=== PATIENT | female | born 1995 | race Caucasian/White ===

== ENCOUNTER 2024-09-08 11:20 | Emergency (ER) | payer OTHER, SELFPAY ==
[2024-09-08 11:20] VITALS: BP 145/88; PULSE 108; PULSE 114; RESP 14; TEMP 36.6; O2SAT 98; BMI 34.5
--- NOTE | 2024-09-08 12:57 | EX.ED.VIS.PS ---
HPI HPI - Psych History of Present Illness Chief Complaint: Depression Detail of Chief Complaint: Depression Informant: patient Onset/Context/Timing Onset: Month(s) Context: Probably worse over the past 1 to 3 months. Conflict: - (None per patient) Timing: Continuous and Waxes and wanes Current Severity: Mild Maximum Severity: Moderate Worsened by: - (Nothing specific) Relieved by: Nothing Associated Symptoms Associated Symptoms - Psych: Positive for Depressed and Easily distracted; Negative for Guilt, Decreased Concentration, Hopelessness, Suicidal Thoughts, Grandiosity, Flight of Ideas, Increased activity, Pressured Speech, Agitated, Angry, Hostile, Threatening, Confusion, Paranoia, Visual Hallucinations or Auditory Hallucinations Specific plan (suicidal thought): Not applicable Narrative Narrative: Patient is a 29-year-old female with history of depression who has been seen at the crisis center. She does not recall the name of the triage licensed practical nurse she saw. She is presently on no medication and would prefer not to be on any medication. She feels that it is a mistake that she came here. She apparently told her doctor that she has been depressed and was told to come to the emergency room for psychiatric evaluation. There is a family history depression mother and maternal grandmother. Patient is never attempted to harm herself. Patient is guarded. I believe she is guarded because she is concerned she will be hospitalized. She expressed that she does not want to be hospitalized. She was informed in my opinion she does not need to be hospitalized based on what she told me. Patient denies any constitutional, HEENT, cardiovascular, or GI symptoms. Patient denies any urologic or neurologic symptoms. Prior similar symptoms: Yes Recent Illness/Hospitalization: No PFSH PFSH Medical History Depression Anxiety Allergy/AdvReac Type Severity Reaction Status Date / Time No Known Allergies Allergy Verified 09/08/24 11:21 Surgical History no surgical history no surgical history Social History (Updated 09/08/24 @ 12:[address] Cruzito Hernandez MD) household members: family Smoking Status: Unknown if ever smoked substance use type: does not use ROS ROS ED Constitutional Constitutional ED: Denies chills, fever(s), subjective, sweats or weight loss Eyes Eyes: Denies blurry vision or change in vision ENT ENT ED: Denies rhinorrhea or sore throat Cardiovascular Cardiovascular: Denies chest pain or palpitations Respiratory/Chest Respiratory/Chest: Denies cough, dyspnea or dyspnea on exertion Gastrointestinal Gastrointestinal: Denies abdominal pain, constipation, diarrhea, nausea or vomiting Genitourinary Genitourinary ED: Denies dysuria, hematuria or urinary frequency Musculoskeletal Musculoskeletal: Denies arthralgias or myalgias Integumentary Denies rash Neurologic Neurologic: Denies headache(s) or paresthesias Psychiatric Psychiatric: Reports depression; Denies suicidal ideation or suicidal thoughts Hematologic/Lymphatic Hematologic/Lymphatic: Denies easy bleeding or easy bruising EXAM Physical Exam Const Vital Signs: 09/08/24 11:20 09/08/24 11:20 Temperature 98 F Temperature Source Temporal Pulse Rate 108 H 114 H Respiratory Rate 14 Blood Pressure 145/88 H Blood Pressure Mean 107 Pulse Ox 98 Oxygen Delivery Method Room Air Positive well nourished and well developed Constitutional Narrative: BMI is 34.5. At times patient became tearful. At times she appeared frustrated and question whether she should have come in. When asked why she is frustrated and concerned she voiced that she does not believe she needs to be admitted and is concerned that my recommendation is for her to be hospitalized. General Appearance ED: well developed; Negative for NAD or pallor HEENT Reports moist mucous membranes normocephalic Eyes PERRL and EOMs intact bilaterally Neck no lymphadenopathy, supple and no JVD Resp normal respiratory effort and clear to auscultation bilaterally Cardio S1 normal heart sound, S2 normal heart sound and no murmurs Rate: tachycardic Rhythm: regular rhythm GI non-tender, non-distended and no masses Auscultation: normoactive bowel sounds Palpation: soft Back/Spine no CVA tenderness Extremity normal to inspection General Extremety ED: Negative for edema or tenderness General Extremity: Negative for edema Neuro oriented x3, CN's II-XII intact bilaterally and no sensory deficits noted Juaquin Coma Scale: document GCS findings Spontaneous Obeys Commands Oriented 15 Sensorium / Orientation: alert Psych Appearance: grossly normal Attitude: withdrawn Activity / Motor Behavior: fidgetting and avoids eye contact Speech: slow and delayed Mood & Affect: depressed and flat affect Thought Process: normal thought process Thought Content: normal thought content Attention / Concentration: attention grossly intact and concentration grossly intact Memory / Cognition: memory grossly intact Insight: fair Judgement: fair Skin General Skin Exam: Negative for jaundice or pallor Lesions: no lesions Rashes: no rashes MDM MDM MDM Narrative Medical decision making narrative: Patient is depressed. Patient would benefit from intensive outpatient therapy and medication. Patient declines medication. She wants to try not on medication intervention before starting any medication. Consult was placed to case management. Spoke with Bess and Glenda regarding patient's. They will see her and will discuss appropriate treatment plan. Management Discussion w/another healthcare provider: transmission worker/Case management (Patient was not evaluated by triage licensed practical nurse. Patient has appointment at 2:00 for intense outpatient therapy.) Discharge Plan Triage Chief Complaint: Depression ED Provider: Cruzito Hernandez Dx/Rx/DC Orders Clinical Impression: Depression, Anxiety, Adult BMI 34.0-34.9 kg/sq m, Sinus tachycardia Instructions: ED Depression Primary Care Provider: Finsese Royal Referrals: Finesse Royal MD [Primary Care Provider] - Activity Restrictions/Additional Instructions: Keep your appointment with IOP scheduled for tomorrow Print Language: Irish Disposition Disposition: Home, Self Care
[2024-09-08 13:56] VITALS: BP 118/64; PULSE 91; RESP 16; TEMP 36.6; O2SAT 100
--- NOTE | 2024-09-08 15:06 | CM.ED ---
Reason for consult: Mental Health Informant(s): Patient and patients mother Chief Complaint: ??Patient presents to ER from primary care physician office after expressing an increase in depressive symptoms.?? Patient states that in the last month or two, she feels her symptoms have gotten worse.? She states she has a lack of motivation, has a hard time getting out of bed in the morning. ??Patient states that she has not looked for a job because she feels that she has diagnosis that have not been identified and she feels that she needs to be able to tell an employer why she acts the way she does.? ?States she does shower every other day but then go back to bed.? Patient reports that she has a hard time ?doing anything and cleaning her room?. Patient states that she wakes up during the night frequently and that her appetite is decreased.? ?Patient reports having no friends and feels that her mom and dad do not understand her mental health concerns.? Patient?s mom states that patient has been isolating herself, that she becomes preoccupied and fixates on events going on in the world.? Patient?s mother states it has become difficult to redirect her when she begins talking about events that upset her, stating that patient has a lot of empathy and becomes emotional over perceived injustices.? Marital/Social History: ?Single Living Situation: ?patient is living with her mom, dad and older brother Support/Resources: parents some, and brother History: None Education and Employment History: Patient has a bachelor?s degree in [employer].? Last worked summer for the [email or web address] Treatment/History: Patient stated she has seen Dr. Bartholomew at [facility] and has seen several counselors at [facility]. ??Patients mother state they have seen multiple providers, but that patient hasn?t found the right fit.? Patients mother stated that she starts with a provider and then decides that it is not going to work.?? Patient states she is currently not on any medications but in the past has been prescribed Zoloft, something for insomnia, and something for anxiety but was unable to state medication names.? Patient states she has not been taking any of her medications for about a year.?? Patient states that she has been diagnosed with Depression and Anxiety.? Mother states that when she was a child she was diagnosed with a form of high functioning autism.? Triggers/Stressors to mental health: ?Patient would only state the holidays, no specific reason Coping Skills: ?you tube videos, listening to music, reading History of Abuse (physical/sexual/verbal/emotional): None Substance Abuse Current/Historical: None Risk to Self/Others: ? Suicidal (thought/plan/intent/attempt): Patient denies any current Suicidal ideations or plans to harm self or kill self.? Patient stated the only time she had ever thought about wanting to go to sleep and not wake up was when she was in middle school, but she was unable for certain if she was suicidal or ?if I just wanted to go [place] by myself?.? When asked if patient had ever harmed self, patient stated that she did cut herself in the past but the intent was not to , she was punishing herself for something she did.? No reports of ideation or self-injurious behavior in the last 1-3 months.? Patients mother confirmed that patient has not had suicidal ideations. ? Access to Lethal Means: not assessed ? Homicidal (thought/plan/intent/attempt): none ? History of Violence (self/others/objects): none ?? Appearance/General Behavior: ?Clean/appropriate, calm Mood/Affect: ?depressed, tearful at times, anxious Communication Pattern: responds to questions but had a difficult time being decisive about answers Thought Process: fragmented General Intellectual Functioning:?? average Judgment: fair Insight: fair Summary:? Due to not being SI or HI and patient being interested in additional services, information given to patient regarding [facility] PCP and IOP.? Spoke with Dr. Hernandez who supports plan.?? Painte also given counseling resources and information on [facility].? Plan: ??Appointment made with [facility] for assessment to either PHP or IOP on SaturdaySeptember 09 at 2:00pm.? Confirmed with physician who agrees with plan. Glenda Finney, [employer], DISCOTHEQUE DANCER ?
== END 2024-09-08 13:57 | disposition home or self-care (01) ==
PROVIDERS: Emergency Provider Emergency Medicine; PCP Family Medicine; Visit Provider Emergency Medicine
DX: F32.A Depression, unspecified (principal); F41.9 Anxiety disorder, unspecified; R00.0 Tachycardia, unspecified
CPT/HCPCS: 99282

== ENCOUNTER 2024-09-16 08:00 | Outpatient (RCR) | payer MEDICAID, SELFPAY ==
--- NOTE | 2024-09-16 10:10 | BH.SGPN.GN ---
Behaviors/Verbalizations/Mental Status: [] Eye contact is good. Motor activity is appropriate. Appearance is casual. Speech is Appropriate. Mood is anxious. Affect is congruent. Thoughts are linear and logical. No evidence of psychosis. Client Response/Progress/Benefit: [] Pt participated at times during the interactive group discussions. Along with peers contributed to interactive discussion on defining what a boundary is in mental health. Pt along with peers identified challenges to setting boundaries which included; people pleasing, possible conflict, possible abandonment, fear of rejection, fear of loss, fear people won't respect the boundary, etc. Pt worked well in small group in which they identified different types of boundaries (material, sexual, intellectual, physical, emotional) and provided examples. Pt benefited from increased awareness and insight on the challenges to setting boundaries and the types of boundaries. Will continue in IOP to prevent decompensation, stabilize mood, and improve functioning Narrative Note: []
--- NOTE | 2024-09-16 11:10 | BH.SGPN.GN ---
Behaviors/Verbalizations/Mental Status: []Eye contact is good. Motor activity is appropriate. Appearance is casual. Speech is Appropriate. Mood is depressed and anxious. Affect is congruent. Thoughts are linear and logical. No evidence of psychosis. Client Response/Progress/Benefit: []Pt responded well to session AEB listening attentively to peers and taking notes throughout. Reports connecting with rigid boundaries much of the time and reflected on how this has made her more isolated and increases difficulties in asking for help. Participated in group discussion brainstorming various strategies for improving healthy boundary setting. Seemed to benefit from increased awareness of how different boundary styles can impact mental health. Will continue IOP tx to prevent decompensation, improve daily functioning, and increase mood stability. Narrative Note: []
--- NOTE | 2024-09-16 14:26 | BH.MTP_ITS ---
[facility] Treatment Plan Patient Information Program Physician:: Noemi Ramsay Primary Therapist:: GONZALES Fish Psychiatric Diagnoses Psychiatric Diagnoses:: 1. Major depressive disorder, recurrent, severe without psychosis 2. Anxiety disorder, NOS 3. Autism spectrum disorder Diagnosis Code(s):: F 33.2 Estimated LOS Estimated LOS (in weeks):: 6 Problem/Goal #1 Problem/Goal #1 Stated Goal:: Pt will decrease depressive symptoms, inappropriate guilt, worthlessness, and negative self-talk. Description of Barriers: Pt has a history of isolation, limited supports, avoidance, low motivation, and negative self-talk Functional Impact: The patient is a 29-year-old single female with a history of depression, anxiety and autism spectrum disorder who was referred to the IOP at [facility] after being seen in the [facility] emergency room on September 08, 2024 for worsening symptoms of depression and anxiety. Her symptoms of depression have been worsening for the past 2 to 3 months and she was sent to the emergency room by her primary care physician after she told them she was depressed and wanted to run away. At time of admission, patient endorses sadness, crying episodes, loneliness, hopelessness, feeling empty, low energy, fatigue, decreased concentration and guilt. She does have a history of self-harm by scratching herself very superficially. She states she has done this a few times and the most recent time she did it was 2 days ago. She is experiencing some racing thoughts and feeling restless at times. Goal Relevant Strengths/Supports: Pt has been in therapy before and found it helpful. Pt is open to tx and intelligent Objectives Objective #1: Stated Objective: Pt will learn and utilize 2-3 healthy coping strategies to better manage depressive symptoms as shown by a decrease of DMS-5 symptoms for depression. Interventions: Through group and individual sessions, therapist will help pt identify triggers and warning signs of depression and guilt including emotional, physical, and behavioral changes. Therapist will teach pt various coping skills to manage symptoms and give pt tangible resources to use to regulate emotions. Therapist will use cognitive restructuring techniques and help pt gain awareness of negative thoughts that reinforce guilt and depression. Therapist will provide psychoeducation on maintenance cycles and help pt learn ways to break unhealthy maintenance cycles. Therapist will help pt incorporate behavioral activation and assist pt in setting SMART goals. Discharge Criteria: Pt will have met this goal when can report learning and using at least 2 coping skills to manage depressive symptoms and reduce isolation. Additionally, pt will have met this goal when pt's DSM-5 scores for depression decrease. Target Date: 10/30/24 Review Date: 10/07/24 Objective #2: Stated Objective: Pt will identify at least 2-3 negative self-talk messages used to reinforce negative core beliefs, worthlessness, and isolation and replace thoughts with balanced, realistic messages. Interventions: Therapist will help pt identify distorted, negative beliefs about self and replace with more realistic, affirmative messages. Therapist will use CBT and DBT to help pt increase insight to the connection between thoughts, emotions, and behaviors. Therapist will encourage pt to practice thought challenging. Discharge Criteria: Pt will have achieved this goal when can verbalize at least 2 cognitive distortions and effectively replace those thoughts with affirmative messages. Target Date: 10/30/24 Review Date: 10/07/24 Problem/Goal #2 Problem/Goal #2 Stated Goal:: Client will reduce overall frequency, intensity, and duration of anxiety to improve functioning on a daily basis. Description of Barriers: Pt has a history of isolation, limited supports, avoidance, low motivation, and negative self-talk Functional Impact: The patient is a 29-year-old single female with a history of depression, anxiety and autism spectrum disorder who was referred to the IOP at [facility] after being seen in the [facility] emergency room on September 08, 2024 for worsening symptoms of depression and anxiety. Her symptoms of depression have been worsening for the past 2 to 3 months and she was sent to the emergency room by her primary care physician after she told them she was depressed and wanted to run away. At time of admission, patient endorses sadness, crying episodes, loneliness, hopelessness, feeling empty, low energy, fatigue, decreased concentration and guilt. She does have a history of self-harm by scratching herself very superfi cially. She states she has done this a few times and the most recent time she did it was 2 days ago. She is experiencing some racing thoughts and feeling restless at times. Goal Relevant Strengths/Supports: Pt has been in therapy before and found it helpful. Pt is open to tx and intelligent Objectives Objective #1: Stated Objective: pt will identify 2-3 cognitive distortions that lead to rumination and learn 2-3 ways to manage these thoughts to better manage anxiety. Interventions: Therapist will provide education on the most common cognitive distortions and teach pt the connection between thoughts, emotions, and feelings. Therapist will assist pt in identifying, challenging, and replacing dysfunctional thoughts with positive, more realistic thoughts. Therapist will use CBT and DBT techniques to help pt gain awareness of thinking errors and learn how to more effectively handle negative thoughts. Discharge Criteria: Pt will have accomplished this goal when can identify at least 2 cognitive distortions and at least 2 coping skills to manage negative thoughts. Target Date: 10/30/24 Review Date: 10/07/24 Objective #2: Stated Objective: Pt will identify 2-3 anxiety and panic triggers and 2 coping skills to use when feeling anxious or overwhelmed to manage anxiety as shown by reducing DSM-5 scores for anxiety Interventions: Therapist will provide education on anxiety, avoidance behaviors, and maintenance cycles. Therapist will help pt explore personal symptoms and warning signs of anxiety and irritability. Therapist will teach pt coping skills to improve emotional regulation, mindfulness, and distress tolerance to help pt cope with anxiety in the moment. Discharge Criteria: Pt will have accomplished this goal when he can identify at least 2 triggers and report using 2 coping skills to manage anxiety and irritability. Additionally, pt will have accomplished this goal AEB reduction of DSM-5 scores for anxiety. Target Date: 10/30/24 Review Date: 10/07/24
--- NOTE | 2024-09-16 14:42 | BH.PSA ---
Source of Information Presenting Problems/Circumstances Problems, Referral Source, Mental Status, Client: The patient is a 29-year-old single female with a history of depression, anxiety and autism spectrum disorder who was referred to the IOP at [facility] after being seen in the [facility] emergency room on September 08, 2024 for worsening symptoms of depression and anxiety. Her symptoms of depression have been worsening for the past 2 to 3 months and she was sent to the emergency room by her primary care physician after she told them she was depressed and wanted to run away. At time of admission, patient endorses sadness, crying episodes, loneliness, hopelessness, feeling empty, low energy, fatigue, decreased concentration and guilt. She does have a history of self-harm by scratching herself very superficially. She states she has done this a few times and the most recent time she did it was 2 days ago. She is experiencing some racing thoughts and feeling restless at times. Psychiatric Presentation Psych Issues & Need for Admission Psychiatric Issues:: depression, anxiety Past Psychiatric History MH Treatment Hx Treatment History: She had counseling in the past at the counseling center, though was inconsistent First hospitalization:: denies Most recent hospitalization:: denies Medication Trials:: Yes (Zoloft and trazodone) Age of first mental health symptoms: Diagnosed with autism age 14 and reports depression off and on since Current providers for mental health treatment (counselor, psychiatrist, case filler, etc.): Denies, will be connected prior to [facility] d/c Development & Family of Origin Childhood Significant Childhood Events: . School was difficult for her and she was on an IEP and in special ed due to autism Family Who currently lives in your home?: Lives with parents and brother whom is 4 years older than pt Describe family composition:: Pt is the youngest of two childre, Parents are and pt reports she has a brother 4 years older than her. Pt does not feel she is close with her family and feels they are just roommates Family History Family Hx of Psychiatric or AOD Problems: Mother and maternal grandmother depression Ethnicity Culture Do you identify yourself with any particular cultural, ethnic background, or community?: No Sexuality Sexual Orientation: Heterosexual Spirituality Methodist Do you currently identify with any organized baptist?: Unspecified Beliefs Is there a particular form of support from this community you can use for your recovery?: No Mental Status Memory Recent Memory: Fair Remote Memory: Fair Concentration Concentration: Fair Eye Contact Eye Contact: Good and Stares Speech Speech: Congruent Thought Process Thought Process: Logical Insight: Fair Judgment: Fair Behavior: Anxious Orientation Orientation: Time, Person, Place and Situation Appearance Appearance: Appropriate Mood Mood: Anxious and Depressed Affect Affect: Constricted Suicide Assessment Suicidal Ideation Have you ever felt like hurting yourself?: Yes Please explain:: hx of passive thoughts of Were you using ETOH/drugs at the time?: No Suicidal Intentional Rating Scale (SIRS): Current suicidal thoughts/No plan/Contracts for safety Physician Notification Violent Behavior/Abuse History Homicidal Ideation Do you have any homicidal thoughts? If so, explain:: No Abuse Please explain:: Denies any abuse hx Life Events Are there any other significant life events?: Hardships (autism dx at 14) Safety Do you ever feel threatened in your home? If yes, describe:: No Adult Social History Age 19 to Present Describe your current support system:: Reports I guess my parents Substance Use Substance Substance Use Type: None and Caffeine Specific Drugs What specific drugs have you used?: denies Leisure/Social Activities Interests What do you enjoy or might be interested in learning about?: enjoys movies, reading, acting and would like to learn mo9rve about healthy coping skills and volunteer opportunities. 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 If yes, describe:: No Court Orders Have you had any past court orders for psychiatric treatment?: No Do you have a present court order for psychiatric treatment?: No Problem Checklist Current Problem Areas Problem List: Depressed mood/sad, Anxiety and Inattention Discharge Planning Needs Anticipated Follow-Up Mental Health Center (Name/Phone Number):: Denies, will be connected prior to d/c Private Therapist/Psychiatrist:: Denies, will be connected prior to d/c Family and Caregiver Contacts:: CINTHIA WALKER (Mother) [phone] Release of Information Signed:: Yes Biomedical Specialist's Assessment Client's Needs What are the client's feelings about the program?: Pt is uncertain but hopeful the program will be helpful in improving her mood stability What are the client's goals?: Improve emotion regulation, reduce depression and anxiety, and increase confidence What are the client's strengths?: Pt has been in therapy before and found it helpful. Pt is open to tx and intelligent Diagnoses Diagnoses Diagnosis #1:: Major Depressive Disorder Diagnosis #2:: Generalized Anxiety Disorder Diagnosis #3:: Autism Interpretive Summary Interpretive Summary Interpretive Summary: The patient is a 29-year-old single female with a history of depression, anxiety and autism spectrum disorder who was referred to the IOP at [facility] after being seen in the [facility] emergency room on September 08, 2024 for worsening symptoms of depression and anxiety. The patient currently lives with her parents and brother. Her symptoms of depression have been worsening for the past 2 to 3 months and she was sent to the emergency room by her primary care physician after she told them she was depressed and wanted to run away. The patient noted that she felt like running away but she does not want to . She does feel like she is a burden. The patient has been unable to work and has difficulty doing her activities of daily living due to her symptoms. For primary support she has no friends according to the emergency room record when her mom was present for the interview. When asked if she is talks to when she feels she is not doing well she states I talk to nobody. The patient endorses sadness, crying episodes, loneliness, hopelessness, feeling empty, low energy, fatigue, decreased concentration and guilt. The patient enjoys movies, reading and music. She is sleeping 6 to 8 hours a night and appetite and weight are stable. She denies passive thoughts of , plan for suicide, suicidal ideation, homicidal ideation, hallucinations, delusions or symptoms of juaquin ever. She does have a history of self-harm by scratching herself very superficially. She states she has done this a few times and the most recent time she did it was 2 days ago. She is experiencing some racing thoughts and feeling restless at times. She only has a few panic attacks a year. She denies OCD, eating disorder, trauma, PTSD, seizure or head trauma. Treatment Plan Recommendations Recommendations Guidelines Recommendations:: The patient will start the IOP and behavioral health at [facility] as the structure, support, education and group therapy will hopefully prevent worsening of the patient's symptoms.
--- NOTE | 2024-09-16 15:33 | BH.MDN_ITS ---
Multi-Disciplinary Note Note 30-min Individual: Time Started:: 09:00 Date: 09/16/24 Purpose of session/treatment goals addressed:: To gather information on pt's treatment goals, presenting problems, history, and past treatment. Another goal was to build rapport and complete the suicide assessment screening. Eye Contact:: Good Motor Activity:: Appropriate Appearance:: Casual Speech:: Appropriate Mood:: Anxious and Depressed Affect:: Congruent Thoughts:: Linear, Logical and No evidence of hallucinations/delusions noted Staff Interventions:: motivational interviewing, psychoeducation on: (cognitive triangle, introduced maintenance cycles), rapport building, strengths perspective, treatment planning and goal setting Client Response:: Pt responded well to session, open to meeting with therapist. Pt reports She has been struggling with mental health for many years as pt recalls depression and loneliness starting in middle school. Reports that she became isolated around that time and has struggled with maintaining friendships since. Pt shared that she also began self-harming via scratching herself around that time and has consistently done this when overwhelmed or depressed since. Noted that she has had counseling off and on since age 13 for her depression, anxiety, and ?anger issues?, but does not currently have any mental health providers. She noted that she was referred to [facility] tx by the ER after she was sent there by her PCP due to expressing passive thoughts of without plan or intent during an appointment. Shared that over the past several months her motivation has been poor, she struggles with hopelessness and hel plessness, and feels she is a burden to her family. Pt currently live with her parents and older brother but reports they are not close and she feels like they are ?just roommates?. Noted that she has never been very close with her family and would like to live independently but feels she does not have the confidence to do so at this time. 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 Pt noted feeling ?useless? as a result and feels that she does not do anything of value during the day. She has a bachelor?s degree in film and finds movies and books to be her primary coping mechanism. Pt denies any substance use, prior suicide attempts or psychiatric hospitalizations. Pt does passive thoughts of not wanting to exist but denies suicidal ideation at this time as well. Pt receptive to emotional support and psychoeducation provided by therapist throughout session. Shared she would time to work opn understanding and coping with her mental health as well as improving independence through increased confidence levels. Receptive of discussion reviewing the cognitive triangle and introducing maintenance cycles. Risks/Concerns:: Pt reports having passive a few days ago. Pt denies any plan or intent at the time. Currently endorses thoughts of not wanting to exist. No other attempts. Pt does not own firearms. Progress Toward Goals/Plan:: Pt's first day of IOP tx. Pt shared she has never done group therapy in the past, but is keeping an open mind. Pt does not have any outpatient providers. Pt wants to focus on reducing the impact her mental health has on her life. Pt wants to isolate less, challenge her negative thoughts, and be able to regulate emotions more effectively. Pt will continue IOP tx to prevent decompensation, improve daily functioning, and gain healthy coping skills. Time Stopped:: 09:29
--- NOTE | 2024-09-16 15:37 | BH.COMM_ITS ---
Communication Note Communication with Client Communication Note: Met with pt to complete initial paperwork and administer the CSSR-S screening and risk assessment. Pt is a low to moderate risk as pt denies any active SI, plan, or intent, but she had passive SI a few days ago and passive thoughts of not existing. Pt reports no history of suicide attempts. History of self-harm via scratching arms since 14, last occurred last night. Denies ever needing medial attention. Lives with parents and denies any firearms at home. Pt is future oriented. Pt reports ability to maintain safety today. Discussed case with Dr. Fierro and pt will be admitted to [facility] tx with a diagnosis of Major Depressive Disorder, severe without psychosis. F 33.2
--- NOTE | 2024-09-17 09:00 | BH.SGPN.GN ---
Behaviors/Verbalizations/Mental Status: []Pt alert and oriented, neatly dressed and groomed. Eye contact fair. Motor activity appropriate. Speech within normal limits. Affect congruent, mood anxious and depressed. Thoughts linear, logical, no signs of hallucinations or delusions. Reviewed pt?s symptom tracker, no risk for suicidal ideation, plan, or intent 09/17/24 Client Response/Progress/Benefit: []Pt was an active participant in group discussions. Attentive. Able to identify mental health wins including starting a new TV series that brings pt fortunato and waking up on time without falling back to sleep. Pt's stressor today is she feels conflicted about what to get people for [place] and this is stressful for pt. Pt stated pt is feeling neutral this morning. Pt receptive to feedback from peers which pt reported was helpful. Progress noted. Benefited from group support, encouragement, and feedback. Will continue in IOP to prevent decompensation, improve daily functioning, and increase distress tolerance. Narrative Note: []
--- NOTE | 2024-09-17 10:00 | BH.NA ---
Physical Data Vital Signs Pulse Rate: 90 Blood Pressure: 143/77 Height/Weight Height: 1.52 m Weight:: 77.111 kg Weight in Pounds: 170.0 lbs Nutritional History Appetite Nutritional Instructions: Describe your appetite:: Fair Additional nutritional information:: Client states she has a decreased appetite at times and does skip meals sometimes. Functional Assessment Sleep Pattern Describe any problems with sleeping: Client states she sleeps about 6-8 hours per night. Surgical History Surgical History Have you had any surgeries? If so, list type and date:: Yes (tumor removal from jaw at age 15) Substance Abuse Substance Abuse Please describe substance abuse in the last 30 days:: Client denies alcohol, tobacco, substance or caffeine use. Mental Status Summary Mental Status Significant Findings/Observations on Appearance and Mood:: Client is alert and oriented x 4. Client is casually groomed. Client is cooperative with assessment. Client makes poor eye contact. Client's voice has normal rate and volume. Client has a restricted affect. Client appears to not be able to describe how she feels with vague answers of I don't really know or I can't describe it right now. Client makes logical associations. Client denies delusions/hallucinations. Client denies SI at this time. Suicide Assessment Suicidal Ideation Are you currently or have you been suicidal in the past?: Yes (states she had thoughts of harming her self/suicide before she went to ER) Suicidal Intentional Rating Scale (SIRS): Suicidal thoughts (past) (denies SI at this time) Physician Notification Past Psychiatric History MH Treatment Hx Past Psychiatric Medications:: Zoloft Age of first mental health symptoms: Client states she first had depression symptoms around age 14 and was first on medication for mental health around age 23. Describe (age, circumstance, etc) any past hospitalizations: None. Current providers for mental health treatment (counselor, psychiatrist, rifle case repairer, etc.): Has gone to [facility] in the past but none at this time. Fall Risk Assessment Age Age: Less than 60 Mental Status Mental Status: Willing & able to ask for assistance when needed Physical Status Physical Status: No problems Impairments Impairments: None Elimination Elimination: Continent AND independent Gait or Balance Gait or Balance: Walks independently Hx of Falls History of falls in the past 6 months: No known history Medications/Substances Medications/substances used within the past 24 hours or ordered to administer: None of the medications/substances list above Total Score Total Points:: 0 RN Summary of Impressions Impressions Recommendations Impressions: Psychiatric Issues: 1. Major depressive disorder, recurrent, severe without psychosis 2. Anxiety disorder, NOS 3. Autism spectrum disorder 4. Primary support, work and financial issues Level of Care How do the client's current symptoms and functional deficits support need for this level of care?: Client was referred to IOP by Crisis after a visit to the ER on 09/08/24 for depression and thoughts of harming herself. Client had first gone to her PCP and told him she was depressed and wanted to run away and he sent her to the ER. When asked how client feels at this time as far as her mood, client states I really can't describe it. When asked if she is still having thoughts of harming herself, client states no. When asked what her biggest stressor is in her life right now client states I have so many but does not elaborate when asked to describe further stating I can't really describe them. IOP will promote gains and prevent further decompensation while providing social support and skills training.
--- NOTE | 2024-09-17 10:10 | BH.SGPN.GN ---
Behaviors/Verbalizations/Mental Status: []Pt alert and oriented, casually dressed and groomed. Eye contact good. Motor activity appropriate. Speech within normal limits. Affect congruent, mood depressed. Thoughts linear, logical, no signs of hallucinations or delusions. Client Response/Progress/Benefit: [] Pt engaged participant AEB listening attentively to others and providing input throughout group. Pt worked within their small group to identify strategies to manage inappropriate guilt. Shared a personal example of inappropriate guilt as feeling guilty for not having enough hands on experience in school during COVID. Insight this leads to fear of failure and isolating. Pt wants to work on combatting inappropriate guilt by challenging distortions and improving emotion regulation skills. Pt seemed to benefit from learning about strategies to manage appropriate and inappropriate guilt. Pt will continue IOP tx to reduce promote mood stability, reinforce healthy coping, and prevent decompensation. Narrative Note: []
[2024-09-17 11:07] VITALS: BP 143/77; PULSE 90
--- NOTE | 2024-09-17 12:06 | PCM.BH.PSYEV ---
Psychiatric Evaluation Initial Evaluation Initial Evaluation: History of Present Illness: [] The patient is a 29-year-old single female with a history of depression, anxiety and autism spectrum disorder who was referred to the IOP at [facility] after being seen in the [facility] emergency room on September 08, 2024 for worsening symptoms of depression and anxiety. The patient currently lives with her parents and brother. Her symptoms of depression have been worsening for the past 2 to 3 months and she was sent to the emergency room by her primary care physician after she told them she was depressed and wanted to run away. The patient states now that she felt like running away but she does not want to . She does feel like she is a burden. The patient has been unable to work and has difficulty doing her activities of daily living due to her symptoms. She is somewhat isolates herself all day. She last worked in 2021 for the [employer] from February to April only. This was the only job she has ever worked. For primary support she has no friends according to the emergency room record when her mom was present for the interview. When asked if she is talks to when she feels she is not doing well she states I talk to nobody. The patient endorses sadness, crying episodes, loneliness, hopelessness, feeling empty, low energy, fatigue, decreased concentration and guilt. The patient enjoys movies, reading and music. She is sleeping 6 to 8 hours a night and appetite and weight are stable. She denies passive thoughts of , plan for suicide, suicidal ideation, homicidal ideation, hallucinations, delusions or symptoms of juaquin ever. She does have a history of self-harm by scratching herself very superficially. She states she has done this a few times and the most recent time she did it was 2 days ago. She is experiencing some racing thoughts and feeling restless at times. She only has a few panic attacks a year. She denies OCD, eating disorder, trauma, PTSD, seizure or head trauma. Current Psychiatric Medications: [] No medications in a little under a year. Past Psychiatric History: [] No psych admits ever. No suicide attempts ever. No psychiatric providers. According to mother in the ER record the patient was diagnosed with high functioning autism as a child. The patient states she was first depressed at age 14 and has been depressed off and on since. She had counseling in the past at the counseling center. Cording to mother in the ER record the patient starts with a provider but then feels it is not going to work and then either stops or changes providers. She has taken Zoloft and trazodone in the past and is uncertain if she has taken any other meds. Substance Use History: [] No nicotine use. Non-smoker. No vaping. No alcohol or marijuana use. No drug use. Allergies: [] No known allergies Medications: [] No medications or supplements. Past Medical History: [] Overweight, jaw surgery at age 15. The patient is a 0 para 0 female with regular menstrual periods. She is not on any control and is not sexually active. Family Psychiatric History: [] Mother is age 60 and father is 70 years old. She thinks her mom and maternal grandmother may have had depression but she is not sure. No suicides in the family. She is not sure about substance issues. Personal/Social History: [] The patient was born and raised in [place] and describes her childhood as normal. She denies any verbal, physical or sexual abuse ever. Her parents are and she has 1 brother 4 years older than her and they are not really close. School was difficult for her and she was on an IEP and in special ed she says. She graduated high school and has a BA in film. She has not worked except for 1 job at the [employer] from February to April of 2022. The patient feels that her mental health symptoms make her unable to work or feels she could have ADHD. She states that her parents support her financially and she denies being on any other assistance. No serious relationships ever but describes herself as heterosexual. Legal History: [] No arrests. 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 Review of Systems: [] Review of systems is negative except as noted in the present illness. Vital Signs: [] Vital signs are reviewed in the nurses notes in the record and updated and the patient is deemed medically able to participate in the IOP. Laboratory: The patient has had blood drawn on a regular basis by her primary care physician. Mental Status Examination: [] The patient is a short (5 foot tall) slightly overweight female who is 29 years old and casually dressed and groomed with good hygiene. She is ambulatory with a normal gait and has no psychomotor agitation or retardation. She is cooperative during the interview to some extent but is quite reticent and has some difficulty verbalizing feelings and her history. Her eye contact is poor at times as she looks down or looks away while talking and seems to not want to make eye contact for very long. Speech is normal rate and rhythm and fluent with no pressure. Mood is depressed. Affect is constricted. Thought process is goal-directed and organized. Thought content: There is no evidence of passive thoughts of , suicidal ideation, homicidal ideation, plan for suicide, hallucinations, delusions or juaquin ever. The patient does admit that she is lonely when asked if she feels lonely. Reality testing is intact. Intelligence is average. Judgment is intact. Insight: Limited. Diagnoses: [] 1. Major depressive disorder, recurrent, severe without psychosis 2. Anxiety disorder, NOS 3. Autism spectrum disorder 4. Primary support, work and financial issues Plan: [] The patient will start the IOP and behavioral health at [facility] as the structure, support, education and group therapy will hopefully prevent worsening of the patient's symptoms. She felt safe during the interview and if it anytime she does not feel safe she agrees to let us know or go to the emergency room. The patient is given the option of medication and the risks, options and possible complications were discussed but the patient absolutely refuses to take any medication and states that she is not a fan of medication. She also feels that her mother would not want her to take medication. She will continue to follow-up with her outpatient providers and I will see the patient in follow-up while she is in the [facility].
--- NOTE | 2024-09-17 12:17 | BH.DR.ITP ---
Initial Treatment Plan Patient Information Visit Information: ADMISSION DATE: EXPECTED LOS: 4-6 weeks Problems/Symptoms Problem #1:: Depression Symptom:: Sadness, hopelessness, worthlessness, low energy, fatigue, decreased concentration, guilt Problem #2:: Anxiety Symptom:: Worry, racing thoughts, restlessness, avoidance
--- NOTE | 2024-09-21 09:00 | BH.SGPN.GN ---
Behaviors/Verbalizations/Mental Status: [] Client alert and oriented, casual appearance. Eye contact fair. Motor activity appropriate. Speech within normal limits. Affect congruent, mood euthymic. Thoughts linear, logical, no signs of hallucinations or delusions. Reviewed client's symptom tracker, no risk for suicidal ideation, plan, or intent. Client Response/Progress/Benefit: [] Client responded well to session AEB listening to others and sharing thoughts/feelings. Per daily symptom tracker client reported a 2/5, with 5 representing severe, for depression and a 3/5 for agitation. Client reported mental health positive as getting a gift for one of her family members completed which is one less thing to worry about. Client stated additional mental health win as feeling healthy. Client reported current stressor as the holidays. Appeared to benefit from support from peers. Will continue IOP tx to improve daily functioning, increase use of healthy coping skills, and prevent decompensation.
--- NOTE | 2024-09-21 10:10 | BH.SGPN.GN ---
Behaviors/Verbalizations/Mental Status: [] Client alert and oriented, casually dressed and groomed. Eye contact good. Motor activity appropriate. Speech within normal limits. Affect constricted, mood euthymic, Thoughts linear, logical, no signs of hallucinations or delusions Client Response/Progress/Benefit: [] Client responded well to session, but struggled to contribute to group discussion. Group identified the benefits of change which included: personal growth, increased confidence, improving mental health, progressing, and becoming resilient. Group identifedbarriers to change, which included: fear of failure, lack of motivation, fear of the unknown, trauma, and negative thinking. Client participated along with group in activity where they discussed the emotions related to change. Benefited from increased awareness and understanding of emotions, benefits, and barriers related to change. Will continue IOP tx to increase self worth and overall functioning. Narrative Note: []
--- NOTE | 2024-09-21 13:47 | BH.MDN_ITS ---
Multi-Disciplinary Note Note 30-min Individual: Time Started:: 11:40 Date: 09/21/24 Purpose of session/treatment goals addressed:: To work on identifying common cognitive distortions and how they impact pt. Eye Contact:: Good and Fair Motor Activity:: Appropriate Appearance:: Casual Speech:: Soft Mood:: Anxious and Depressed Affect:: Constricted Thoughts:: Linear, Logical and Other (concrete ) Staff Interventions:: thought challenging, psychoeducation on: (common cognitive distortions.), CBT techniques, strengths perspective and taught coping skills Client Response:: Pt responded well to session, open to meeting with therapist. Pt's IOP therapist is out for the week, so pt met with this therapist. Pt shared she has been enjoying the program so far and likes the different topics. Pt shared she struggles with identifying what to talk about, so she was receptive to learning about cognitive distortions. Pt and therapist reviewed the common cognitive distortions using the worksheet from the IOP binder. Pt connected most with the following distortions; shoulds, over- generalizing, labeling, and disqualifying the positives. Pt stated she using should statements a lot which leads pt to ruminate on past choices and then shut down. Pt reports ruminating on her choices about school, sharing I should have went to film school earlier. Pt recognizes that she also uses a lot of statements like always and never which also contributes to pt's lack of motivation and depression. Pt receptive to learning ways to identify and begin challenging distortions. These included ways to increase pt's awareness of distortion use and strategies like dialectical thinking. Pt receptive to practicing these skills for homework. Risks/Concerns:: Pt denies any suicidal ideations, plan, or intent. Pt denies any thoughts of . Progress Toward Goals/Plan:: Pt's second week of IOP tx, so no progress to document. Pt reports benefitting from being around other people and learning the different topics. Pt reports wanting to work on negative thinking patterns that exacerbate depression and anxiety. Receptive to homework which was to review skills discussed today and try to catch cognitive distortions. Pt will continue IOP tx to prevent decompensation, improve daily functioning, and gain healthy coping skills. Time Stopped:: 12:06
--- NOTE | 2024-09-25 09:00 | BH.SGPN.GN ---
Behaviors/Verbalizations/Mental Status: [] Eye contact is fair. Motor activity is appropriate. Appearance is casual. Speech is Appropriate. Mood is anxious. Affect is congruent. Thoughts are linear and logical. No evidence of psychosis. Reviewed daily check in sheet and no reports of suicidal ideations or intent. Client Response/Progress/Benefit: [] Pt participated when prompted. ? xmas was actually good this year?. Attempted to elaborate on what made this year better than previous however struggled to verbalize reasons. She discussed stressors and reports urges to ?spend recklessly? however was able to stop herself. Brief check-in which is baseline for patient. She did mention that she found herself ?missing? IOP and the support which she was gone for the holiday.??Benefited from group support, encouragement, and feedback. Will continue in IOP to maintain safety, stabilize mood, increase healthy coping, and improve functioning. Narrative Note: []
--- NOTE | 2024-09-25 10:10 | BH.SGPN.GN ---
Behaviors/Verbalizations/Mental Status: []Eye contact is fair. Motor activity is appropriate. Appearance is casual. Speech is Appropriate. Mood is euthymic. Affect is constricted. Thoughts are linear and logical. No evidence of psychosis. Client Response/Progress/Benefit: [] Pt was engaged and participating throughout, providing input and taking notes. Participated in an interactive discussion on defining anxiety and identifying cognitive and physiological symptoms of anxiety. The group discussed the role of anxiety on isolation, avoidance, and who this emotion impacts their ability to start and complete activities/goals. Pt identified their physical/physiological signs of anxiety which includes: increased heart rate, restlessness and shaky hands. Benefited from increased awareness and insight on anxiety and its impact. Will continue in IOP to reinforce healthy coping skills, improve daily functioning, and prevent decompensation.
--- NOTE | 2024-09-25 11:10 | BH.SGPN.GN ---
Behaviors/Verbalizations/Mental Status: []Pt alert and oriented, casually dressed and groomed. Eye contact good. Motor activity appropriate. Speech within normal limits. Affect congruent, mood anxious. Thoughts linear, logical, no signs of hallucinations or delusions. Client Response/Progress/Benefit: [] Pt was an active participant AEB pt providing input and listening attentively to peers. Attentive during psychoeducation on mindfulness coping skills and their impact on reducing anxiety and improving overall mental health wellness. Group was able to identify self-soothing and mind-based coping skills which included: 5-senses, meditation, deep breathing, TIPP, thought challenging, categories, and progressive muscle relaxation. Pt also participated with peers in practicing mindfulness skills in session including deep breathing. Pt would like to work on listening to soothing music to manage anxiety. Appeared to benefit from increasing repertoire of anxiety reduction skills. Pt will continue in IOP tx to reduce isolation, gain healthy coping skills, and gain self-confidence. Narrative Note: []
--- NOTE | 2024-09-28 09:05 | BH.SGPN.GN ---
Behaviors/Verbalizations/Mental Status: [] Eye contact is good. Motor activity is appropriate. Appearance is casual. Speech is Appropriate. Mood is anxious. Affect is congruent. Thoughts are linear and logical. No evidence of psychosis. Reviewed daily check in sheet and no reports of suicidal ideations or intent. Client Response/Progress/Benefit: [] Pt participated at times during the group discussions. Attentive. Daily symptom tracker notes /5 for depression and /5 for anxiety/irritability. She shared increased anxiety due to change in routine this AM. Shared with the group several worries and ruminations related to having a pathological technician work on the family?s furnace. Restless. Uncomfortable feelings. Peers did well to reframe this event as a opportunity to work on managing her anxiety. Peers also provided feedback and suggestions. Benefited from group support, encouragement, and feedback. Will continue in IOP to prevent decompensation, increase healthy coping, and improve functioning. Narrative Note: []
--- NOTE | 2024-09-28 10:10 | BH.SGPN.GN ---
Behaviors/Verbalizations/Mental Status: []Pt alert and oriented, casually dressed and groomed. Eye contact fair. Motor activity appropriate. Speech within normal limits. Affect congruent, mood dysthymic. Thoughts linear, logical, no signs of hallucinations or delusions. Client Response/Progress/Benefit: [] Pt was attentive during psychoeducation and participated in group activity. Group discussed what contributes to a person?s perspective and how perspective can positively or negatively impact mental health treatment. Pt reflected on their perspective today and how it is impacting them. Pt shared her perspective is closer to positive but is still struggling with opening up to others. Pt appeared to benefit from increasing awareness of different perspectives and how they can affect mental health. Pt will continue IOP tx to improve daily functioning, increase use of healthy coping skills, and prevent decompensation.
--- NOTE | 2024-09-28 11:15 | BH.SGPN.GN ---
Behaviors/Verbalizations/Mental Status: []Pt alert and oriented, casually dressed and groomed. Eye contact good. Motor activity appropriate. Speech within normal limits. Affect congruent, mood depressed and anxious. Thoughts linear, logical, no signs of hallucinations or delusions. Client Response/Progress/Benefit: []Pt was attentive and contributed to group discussion. Pt worked with group to identify strategies that can help with challenging negative perspective. Pt stated she can remind self to use ?delay, distract, decide? skill as a way to challenge negative perspective. Pt completed strengths exploration worksheet, identifying personal strengths of wisdom, creativity, adventurousness. Pt able to acknowledge how these strengths are helping pt and can continue to help pt in mental health journey. Benefited from identifying personal strengths and strategies for perspective challenging. Pt will continue IOP tx to continue practice healthy coping skills, build self-confidence and independence, and prevent decompensation. Narrative Note: []
--- NOTE | 2024-09-29 09:05 | BH.SGPN.GN ---
Behaviors/Verbalizations/Mental Status: [] Pt alert and oriented, casually dressed and groomed. Eye contact good. Motor activity appropriate. Speech within normal limits. Affect congruent, mood depressed and anxious. Thoughts linear, logical, no signs of hallucinations or delusions. Reviewed pt?s symptom tracker, no risk for suicidal ideation, plan, or intent 09/29/24 Client Response/Progress/Benefit: [] Pt was an active participant in group discussions. Attentive. Able to identify mental health wins including getting out of the house and going shopping on her own and making it to group today despite feeling more down the past two days. Shared reminding herself of the importance of attending IOP in improving her mental health. Noted that she has been struggling with motivation which is a stressor as it's impeding her ability to keep her room clean and organized as she likes. Benefited from group support, encouragement, and feedback. Will continue in IOP to prevent decompensation, promote mood stability, and continue to improve use of thought challenging and behavior activation skills. Narrative Note: []
--- NOTE | 2024-09-29 10:10 | BH.SGPN.GN ---
Behaviors/Verbalizations/Mental Status: [] Eye contact is fair. Motor activity is appropriate. Appearance is casual. Speech is Appropriate. Mood is anxious. Affect is constricted. Thoughts are linear and logical. No evidence of psychosis. Client Response/Progress/Benefit: [] Pt was an active participant in group discussions. Attentive during psychoeducation. Contributed during interactive discussions in which peers attempted to define crisis. Group identified crisis examples. Group also worked together to identify warning signs and unhealthy responses to crisis which included shutting down, isolation, avoidance, over-thinking, disordered eating, and self-harm. Pt identified top 3 warning signs as: overuse of distractions, loss of interest, and rapid mood changes. Benefited from increased understanding of crisis and awareness of personal responses to crisis. Pt will continue IOP tx to improve distress tolerance, challenge negative thoughts, and prevent decompensation.
--- NOTE | 2024-09-29 11:27 | BH.MDN_ITS ---
Multi-Disciplinary Note Note 30-min Individual: Time Started:: 11:30 Date: 09/29/24 Purpose of session/treatment goals addressed:: Purpose of session was to address tx plan goal #1 obj #2 and goal #2 obj #1 Eye Contact:: Good Motor Activity:: Appropriate Appearance:: Casual Speech:: Appropriate Mood:: Anxious and Depressed Affect:: Constricted Thoughts:: Linear, Logical and No evidence of hallucinations/delusions noted Staff Interventions:: thought challenging, psychoeducation on: ( maintenance cycles), CBT techniques, mindfulness skills and strengths perspective Client Response:: Pt responded well to session, open to meeting with therapist. Pt noted ongoing sx of depression and anxiety, though feels the IOP groups are helping to reduce isolation and providing her with more structure and support. Pt noted that she was able connect with several of the [id number] distortions she reviewed with one of the other program therapist filling in for this therapist while out of office last week. Pt expressed that while she had been able to connect with the distortions reviewed in session, she struggled to identify and challenge these in the moment when outside of group environment. Receptive of reviewing the daily thought log inserts in the IOP binder as a means of reflecting on thoughts throughout the day, additionally reviewed concept of regular body and thought scans to begin to check-in with her thoughts and physical warning signs before sx escalate to point of panic or not being able to get out of bed. Able to recognize the relationship between her thought patterns, her mood, and her difficulties with consistent task completion. Pt receptive of discussion on beginning a daily accomplishment lof to begin shifting focus from what she is not doing to recognizing and giving herself credit for the things she is accomplishing. Reports willingness to practicing these skills for homework. Risks/Concerns:: Pt denies any suicidal ideations, plan, or intent. Pt denies any thoughts of . Progress Toward Goals/Plan:: Pt rep[orts some progress. Continues to report benefitting from being around other people and learning the different topics as well as structure of group setting. Noted gaining increased insight through discussion on cognitive triangle and can recognize own maintenance behaviors and thoughts reinforcing depression and anxiety. Self-reports difficulties with catching and challenging distortions in the moment. Receptive of discussion on accomplishment log and giving self credit to reduce negative thought patterns. Pt will continue IOP tx to prevent decompensation, improve daily functioning, and continue to gain healthy coping skills. Time Stopped:: 12:00
== END 2024-09-29 23:59 ==
LOC: BHIOP 08:00
PROVIDERS: PCP Family Medicine; Referring Provider Psychiatry & Neurology Psychiatry; Visit Provider Psychiatry & Neurology Psychiatry
DX: F33.2 Major depressive disorder, recurrent severe without psychotic features (principal); F41.9 Anxiety disorder, unspecified; F84.0 Autistic disorder
CPT/HCPCS: S9480; 90832; 90853

== ENCOUNTER 2024-10-01 07:08 | Outpatient (RCR) | payer MEDICAID, SELFPAY ==
[2024-09-30 00:30] VITALS: BP 143/77; PULSE 90
--- NOTE | 2024-10-02 09:05 | BH.SGPN.GN ---
Behaviors/Verbalizations/Mental Status: [] Eye contact is poor. Motor activity is appropriate. Appearance is casual. Speech is Appropriate. Mood is anxious and depressed. Affect is congruent. Thoughts are linear and logical. No evidence of psychosis. Reviewed daily check in sheet and no reports of suicidal ideations or intent. Client Response/Progress/Benefit: [] - Pt participated when prompted. Attentive. Daily symptom tracker notes 4/5 for irritability and 3/5 for depression/anxiety. Brief and superficial check-in. Pt reads her wins from a notebook and struggles to elaborate when asked. Reports ?feeling irritable? today. Discussed ruminations and stress over a basic task which is causing negative thoughts. Group was able to reframe the task and challenge thoughts. Encouraged her to look at the task as a way to learn a new skill. Very rigid thoughts, beliefs, and expectations which impacts her ability to learn new skills and manage change. Progress noted. Benefited from group support, encouragement, and feedback. Will continue in IOP to prevent decompensation, stabilize mood, and improve functioning. Narrative Note: []
--- NOTE | 2024-10-02 10:10 | BH.SGPN.GN ---
Behaviors/Verbalizations/Mental Status: [] Eye contact is fair. Motor activity is appropriate. Appearance is casual. Speech is Appropriate. Mood is anxious and content. Affect is congruent. Thoughts are linear and logical. No evidence of psychosis. Client Response/Progress/Benefit: [] Pt receptive to session AEB listening attentively to others and taking notes. Pt attentive and contributing on occasion throughout psychoeducation on the cognitive triangle and maintenance cycles. Pt engaged during group discussion reviewing the impact of daily activities and behaviors in either reinforcing unhealthy maintenance cycles and depression or assisting in reducing symptoms (?down? vs ?up? activities). Pt participated during interactive discussion in which peers identified common up activities (pets, sports, positive media, self-care, hobbies, and positive support) and down activities (isolation, being unproductive, ruminating, drugs/alcohol, sad music, sleeping more, unhealthy eating). Appeared to benefit from increased awareness of current behaviors and impact these have on mental health. Will continue IOP to improve mood stability, prevent decompensation, and increase healthy coping. ?
--- NOTE | 2024-10-02 11:15 | BH.SGPN.GN ---
Behaviors/Verbalizations/Mental Status: []Eye contact is fair. Motor activity is appropriate. Appearance is casual. Speech is Appropriate. Mood is anxious. Affect is congruent. Thoughts are linear and logical. No evidence of psychosis. Client Response/Progress/Benefit: [] Pt responded well to session, attentive and engaged in group discussions and activity. Actively engaged in continued discussion about up activities and down activities. Active participant as group discussed values and the benefits that knowing one's values can have on one's mental health. Pt completed personal cognitive triangle negative loop. Pt shared value would like to improve is hobbies/recreation. Pt set opposite action goal to finish a book. Benefited from increased awareness of their personal values and how incorporating their values into behavioral activation goals can positive impact mental health. Will continue in IOP to increase consistent use of healthy coping skills, challenge distorted thoughts, and prevent decompensation.
--- NOTE | 2024-10-05 09:00 | BH.SGPN.GN ---
Behaviors/Verbalizations/Mental Status: [] Client alert and oriented, casual appearance. Eye contact fair. Motor activity appropriate. Speech within normal limits. Affect congruent, mood anxious . Thoughts linear, logical, no signs of hallucinations or delusions. Reviewed client's symptom tracker, no risk for suicidal ideation, plan, or intent. Client Response/Progress/Benefit: []Client responded well to session AEB listening to others and sharing thoughts/feelings. Client shared mental health positive as coming to IOP today despite the weather and feeling tired this morning. Client reported additional positive as finishing the [employer]. Client stated she finds watching [employer] shows as something that brings her job. Client expressed interest into learning about [employer]. Client reported current stressor as deciding where she wants to go for her vacation. Appeared to benefit from support from peers. Will continue IOP tx to improve daily functioning, challenge negative thoughts, and prevent decompensation.
--- NOTE | 2024-10-05 10:10 | BH.SGPN.GN ---
Behaviors/Verbalizations/Mental Status: []Eye contact is good. Alert and oriented. Motor activity is appropriate. Appearance is casual. grooming is appropriate. Speech is Appropriate. Mood is content and anxious. Affect is congruent. Thoughts are linear and logical. No evidence of psychosis or hallucinations. Client Response/Progress/Benefit: [] Pt was an active participate AEB listening attentively to others and contributing during group discussions, participating in activity, and taking notes throughout. Attentive and provided input as the group identified ways we can hurt others or sabotage self by not regulating our emotions. Participated with peers to identify ways emotions impact communication. Provided an example of shutting down or isolating when anxiety is unmanaged. Participated during group activity. Pt benefited from session by gaining an increased understanding on the importance of managing emotions to improve daily functioning. Will continue IOP tx to promote use of healthy coping skills, reduce distorted thinking patterns, and improve mood stability. ? Narrative Note: []
--- NOTE | 2024-10-05 11:15 | BH.SGPN.GN ---
Behaviors/Verbalizations/Mental Status: []Pt alert and oriented, casually dressed and appropriately groomed. Eye contact good. Motor activity appropriate. Speech within normal limits. Affect congruent, mood depressed. Thoughts linear, logical, no signs of hallucinations or delusions. Client Response/Progress/Benefit: []Pt engaged in session AEB Pt listening attentively to peers and providing input. Attentive during psychoeducation on 4 zones of regulation. Pt able to identify feelings and behaviors for each zone. Pt identified coping skills one can use to support self in each zone. Pt reported feeling in the blue zone today because pt is tired and depressed. Pt stated coping skills pt wants to practice in each zone include: goal setting, positive self-talk, and opposite action. Pt shared she wants to go home and nap, but pt recognizes that this will likely keep her in the blue zone. Pt has a goal to clean her room, but pt admits she struggles with follow through. Benefited from increased education on zones of regulation or stages of alertness for emotions and healthy coping skills to use for each zone. Will continue IOP tx to prevent decompensation, improve daily functioning, and increase internal motivation. Narrative Note: []
--- NOTE | 2024-10-06 14:10 | BH.SGPN.GN ---
Behaviors/Verbalizations/Mental Status: []Pt alert and oriented, casually dressed. Eye contact fair. Motor activity appropriate. Speech within normal limits. Affect congruent, mood euthymic. Thoughts linear, logical, no signs of hallucinations or delusions. Client Response/Progress/Benefit: []Pt responded well to session AEB Pt listening attentively to others and providing input during group discussion on the pay offs and costs of the different communication styles. Pt able to connect how current communication style impacts mental health. Connected with peers? comments about importance of using assertive communication. Pt did well with practicing being assertive in the group activity and worked with group to identify potential skills for improving communication skills.? Pt seemed to benefit from increasing awareness of healthy strategies to improve communication. Will continue IOP tx to challenge distorted thoughts, increase consistent use of skills, and prevent decomepensation.
--- NOTE | 2024-10-07 09:05 | BH.SGPN.GN ---
Behaviors/Verbalizations/Mental Status: []? Pt alert and oriented, casually dressed and groomed. Eye contact good. Motor activity appropriate. Speech within normal limits. Affect congruent, mood dysthymic and anxious. Thoughts linear, logical, no signs of hallucinations or delusions. Reviewed pt?s symptom tracker, no risk for suicidal ideation, plan, or intent 10/07/24.? ? Client Response/Progress/Benefit: []Pt was an active participant in group discussions. Attentive. 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 Additional win noted as getting an email that she is being refunded for something recently ordered, noted this was an unexpected positive and she was glad to be able to recognize it as such. Pt's stressor today is?feeling overwhelmed by trying to clean her room. Receptive of group suggestions. Pt receptive to feedback from peers which pt reported was helpful. Progress noted. Benefited from group support, encouragement, and feedback. Will continue in IOP tx to prevent decompensation, promote mood stability, and increase small goal setting.? Narrative Note: []
--- NOTE | 2024-10-07 14:48 | BH.MDN_ITS ---
Multi-Disciplinary Note Note 30-min Individual: Time Started:: 10:28 Date: 10/07/24 Purpose of session/treatment goals addressed:: Purpose of session is to address treatment plan goal #1 obj #1 and goal #2 obj #1 Eye Contact:: Good Motor Activity:: Appropriate Appearance:: Casual Speech:: Appropriate Mood:: Anxious and Depressed Affect:: Congruent Thoughts:: Linear, Logical and No evidence of hallucinations/delusions noted Staff Interventions:: thought challenging, motivational interviewing, CBT techniques, strengths perspective and goal setting Client Response:: Pt receptive of session, engaged throughout. Reports things are ?hit or miss? and went on to described completing some tasks, typically those she finds enjoyable such as reading and watching shows she enjoys. Struggling to complete daily responsibilities such as cleaning her room. Reports this is a major stressor as she has difficulties concentrating and feels more on edge when her environment is messy. Noted feeling overwhelmed by the mess and not knowing where to start. Worked with therapist to identify strategies to reduce stress surrounding this task. Receptive of discussion on breaking the task down into smaller tasks and focusing on one area of the room at a time. Identified a goal to start with 15 minutes of cleaning and build on it from there. Additionally, pt connected to giving herself a reward for completing the task as a way of incentivizing it for her, as well as finding strategies for improving the enjoyment surrounding the task. Receptive of putting on music or a podcast while she cleans, as well as allowing herself to watch her favorite movie or show afterwards. Went on to describe a desire to work towards more consistently journaling and believes she will be able to better do this if her environment feels more organized. Risks/Concerns:: None noted. Pt denies SI, plan, or intent as of this date 10/07/24 Progress Toward Goals/Plan:: Progress variable. Pt reports some increase in motivation and improvement in mood since beginning IOP tx but struggles with consistency. Pt reports daily depression and can recognize the benefits of behavioral activation and thought challenging but continues to struggle with motivation and willingness to engage in these on a consistent basis. Pt is isolated with limited social supports which may also contribute to ongoing sx of depression and anxiety. Pt given referral information for [facility] as a means of improving social supports. Recommended continued IOP tx to improve mood stability and self-talk, reduce anxiety, and prevent decompensation. Time Stopped:: 10:55
--- NOTE | 2024-10-07 21:33 | BH.TPR ---
Treatment Plan Review Demographics Date of Admission:: 09/14/24 Date of Treatment Plan Review:: 10/07/24 Admitting Diagnoses:: 1. Major depressive disorder, recurrent, severe without psychosis 2. Anxiety disorder, NOS 3. Autism spectrum disorder 4. Primary support, work and financial issues Current Diagnoses:: 1. Major depressive disorder, recurrent, severe without psychosis 2. Anxiety disorder, NOS 3. Autism spectrum disorder 4. Primary support, work and financial issues Patient Status Patient's Response to Treatment:: Pt has responded well to session AEB engaging in both individual and group therapy sessions, at ties may be more passive in participation but is actively taking notes and listening throughout. Pt has been consistent in attendance. Pt reports benefitting from supportive feedback and structure of group setting. Pt contributes actively during group discussions, takes notes, appears to listen to others, and engages in group activities. Pt's overall DSM-5 scores have made little change since admission and although she reports finding benefit from the coping skills so far, pt continues to indicate ongoing depressive sx. Pt also reports her mood has remained variable given ongoing stress related to the country?[place] current political climate and pt difficulties in finding ways to accept and tolerate what is outside of her control while making strides to actively address what is within her control. Status of Current Problems and Symptoms: Pt's symptoms are resolving, but pt continues to report anxiety with daily ruminations and overthinking everything. Pt also has ongoing difficulties in finding enjoyment in usual hobbies or applying behavioral activation skills to continue addressing ongoing depression. Progress Problem #1: Problem Name:: Depression Status of Goals:: Objective 1- in progress. Pt?s scores for depression have made little improvement since admission. Pt can benefit from reducing these symptoms more through active skill application and thought challenging. Pt is working on engaging in activities she enjoys as well as completing daily responsibilities, challenging unhelpful thought patterns, and reducing isolation. Objective 2- in progress. Pt is working on self-compassion and identifying her common thought distortions to begin working on these. Team Recommendations:: Team recommends continued goals and objectives to reinforce skills and reduce symptoms. Team recommends pt continue working on combating distortions, being more self-compassionate, and setting goals to support her independence. Problem #2: Problem Name:: Anxiety Status of Goals:: Objective 1- in progress. Pt is working on better identifying, catching, and challenging common thought distortions reinforcing anxiety. Often able to do so after the facto but struggles with in the moment skill application. Objective 2- In progress. Pt is working to increase distress tolerance by thinking before making decisions, weighs pros and cons, and challenging herself to regularly practice mindfulness skills when noticing warning signs of increased anxiety. Team Recommendations:: Treatment team encourages pt to continue working on distress tolerance skills, grounding skills, and challenging unhelpful thought patterns.
--- NOTE | 2024-10-09 09:05 | BH.SGPN.GN ---
Behaviors/Verbalizations/Mental Status: [] Eye contact is good. Motor activity is appropriate. Appearance is casual. Speech is Appropriate. Mood is depressed/irritable. Affect is congruent. Thoughts are linear and logical. No evidence of psychosis. Reviewed daily check in sheet and no reports of suicidal ideations or intent. Client Response/Progress/Benefit: [] Pt participated when prompted. Attentive. Daily symptom tracker notes 4/5 for depression and irritability. Pt?s check -in was brief and mostly superficial. She discussed a recent stressful event and how this impact her mental health. Emotion for today is ?confused? however she struggled to identify what she is confused believing it would take to long to explain. Benefits from group support and encouragement. Limited progress noted. Will continue in IOP to prevent decompensation, improve functioning, and to increase healthy coping. Narrative Note: []
--- NOTE | 2024-10-09 10:10 | BH.SGPN.GN ---
Behaviors/Verbalizations/Mental Status: [] Eye contact is fair to good. Motor activity is appropriate. Appearance is casual. Speech within normal limits. Mood is depressed and anxious. Affect is congruent. Thoughts are linear and logical. No evidence of psychosis. ? ? Client Response/Progress/Benefit: [] Client was a semi-active participant in group discussion and experiential activity. Attentive during psychoeducation and taking notes throughout on resilience but did not offer additional input. Participated in interactive discussion with peers on the definition of resilience and where it comes from. Group identified that resiliency can be impacted by; past experiences, upbringing, and current mental health state. Group also worked together to identify the benefits of being resilient and how it is related to mental health. Able to relate experiential activity of group juggle to topics of resilience. Worked with peers in small group in which they identified factors that contribute to resilience. Benefited from increased awareness of resilience and the factors that contribute to building resilience. Will continue in IOP to increase healthy thought patterns and further promote mood stability. Narrative Note: []
--- NOTE | 2024-10-09 11:15 | BH.SGPN.GN ---
Behaviors/Verbalizations/Mental Status: []Pt alert and oriented, neatly dressed and groomed. Eye contact good. Motor activity appropriate. Speech within normal limits. Affect congruent, mood content. Thoughts linear, logical, no signs of hallucinations or delusions. Client Response/Progress/Benefit: [] Pt responded well to session AEB completing the resilience worksheet provided. Pt actively participated in the discussion and worked cooperatively with group to identify strategies to enhance each of the components discussed. Pt reports belief they already use resilience trait of ?moving towards goals.? Pt discussed that they could work on nurturing a positive view of themselves by ?listing positive traits I use in my day to day life.? Pt seemed to benefit from discussing strategies for improving personal resilience and identifying resilience traits Pt already possesses. Will continue IOP tx to increase application of healthy coping skills, reduce isolation and avoidance, and improve daily functioning. Narrative Note: []
--- NOTE | 2024-10-12 09:00 | BH.SGPN.GN ---
Behaviors/Verbalizations/Mental Status: [] Eye contact is good. Motor activity is appropriate. Appearance is casual. Speech is Appropriate. Mood is depressed/irritable. Affect is congruent.. Thoughts are linear and logical. No evidence of psychosis. Reviewed daily check in sheet and no reports of suicidal ideations or intent. Client Response/Progress/Benefit: [] - Pt participated when prompted. Attentive. Daily symptom tracker notes 5/5 depression and 4/5 for agitation. Reports mood and ability to function are ?worse? than last week. Emotion for today is ?awful?. Despite self-reporting significant mental distress her check-in was superficial with no identified stressors. Reports high stress level however struggles to identify any stressors. She had a goal this weekend to go alone to [employer] which she accomplished. Limited progress noted. Limited insight into thoughts and events which are causing emotional distress. Benefited from group support and encouragement. Will continue in IOP to prevent decompensation, increase healthy coping, and improve functioning. Narrative Note: []
--- NOTE | 2024-10-12 10:10 | BH.SGPN.GN ---
Behaviors/Verbalizations/Mental Status: []Client alert and oriented, casually dressed and groomed. Eye contact good. Motor activity appropriate. Speech within normal limits. Affect congruent, mood content. Thoughts linear, logical, no signs of hallucinations or delusions. Client Response/Progress/Benefit: []Pt responded well to session AEB actively participating throughout group. Pt was attentive throughout group activity discussing famous individuals and how they overcame failure to be successful. Pt helped group identify how fear of failure can impact mental health and relationships. Pt personally identified fear of failure has led to pt quitting things and not applying herself. Participated in experiential activity, working with group members to problem solve. Appeared to benefit from increased knowledge of what causes fear of failure and how it impacts people. Will continue IOP tx to promote mood stability, reduce negative thinking patterns, and improve daily functioning. Narrative Note: []
--- NOTE | 2024-10-12 11:10 | BH.SGPN.GN ---
Behaviors/Verbalizations/Mental Status: []Pt alert and oriented, casually dressed and groomed. Eye contact fair. Motor activity appropriate. Speech within normal limits. Affect congruent, mood dysthymic. Thoughts linear, logical, no signs of hallucinations or delusions. Client Response/Progress/Benefit: [] Pt responded well to session, engaged in the experiential activity and attentive throughout group processing. Pt reported fear of failure has kept pt from starting a careerl. Pt completed fear of failure worksheet and was able to identify thoughts and behaviors that reinforce personal fear of failure. Pt participated in small group discussion regarding strategies to overcome fear of failure. Identified wanting to work on setting realistic expectations and asking for help. ?Appeared to benefit from increased knowledge of strategies to combat fear of failure and gaining self-awareness. Pt will continue IOP tx to improve healthy coping skills, challenge distorted thoughts, and prevent decompensation.
--- NOTE | 2024-10-14 09:00 | BH.SGPN.GN ---
Behaviors/Verbalizations/Mental Status: []Pt alert and oriented, casually dressed and groomed. Eye contact good. Motor activity appropriate. Speech within normal limits. Affect congruent, mood depressed. Thoughts linear, logical, no signs of hallucinations or delusions. Reviewed pt?s symptom tracker, no risk for suicidal ideation, plan, or intent 10/14/24. Client Response/Progress/Benefit: []Pt was an active participant in group discussions. Attentive. Able to identify mental health wins including getting to IOP despite having little motivation and trying out journaling. Pt's stressor today is pt has little energy and motivation which leads to isolation and stress. Pt stated pt is feeling like crap this morning. Pt receptive to feedback from peers which pt reported was helpful. Progress noted, but pt admits she struggles with following through with goals outside of IOP. Benefited from group support, encouragement, and feedback. Will continue in IOP to prevent decompensation, increase distress tolerance skills, and improve daily functioning. Narrative Note: []
--- NOTE | 2024-10-14 10:10 | BH.SGPN.GN ---
Behaviors/Verbalizations/Mental Status: [] Client alert and oriented, casually dressed and groomed. Eye contact good. Motor activity appropriate. Speech within normal limits. Affect flat, mood depressed. Thoughts linear, logical, no signs of hallucinations or delusions. Client Response/Progress/Benefit: [] Client was an active participant in group discussions. Attentive during psychoeducation on 4 types of conflict styles (Competing, Collaborating, Avoiding, and Accommodating). Worked with group to define conflict and identify how conflict is helpful. With peers, pt identified barriers to addressing or managing conflict which included: trauma, unmanaged emotions, and cognitive distortions. Client believes they become avoidant when managing conflict at times which has led to not getting needs met. Benefited from group due to increase insight and awareness of benefits to conflict, conflict styles, and obstacles to managing conflict. Will continue in IOP to prevent decompensation, improve mood stability, and increase functioning. Narrative Note: []
--- NOTE | 2024-10-14 11:10 | BH.SGPN.GN ---
Behaviors/Verbalizations/Mental Status: [] Client alert and oriented, casually dressed and groomed. Eye contact fair. Motor activity appropriate. Speech within normal limits. Affect constricted, mood anxious. Thoughts linear, logical, no signs of hallucinations or delusions. Client Response/Progress/Benefit: [] Client engaged in session AEB contributing to discussion and engaging in small group. Attentive during discussion on strategies for more effectively managing conflict in personal life. Client participated in small group for activity and did well practicing how to manage conflict scenarios. Client given handout on [employer] with strategies to to communicate effectively in conflict. Client indicated what needs improvement in conflict for them. Appeared to benefit from gaining strategies to help client better manage conflict. Will continue IOP tx to improve daily functioning, increase use of coping skills, and prevent decompensation.
--- NOTE | 2024-10-16 09:05 | BH.SGPN.GN ---
Behaviors/Verbalizations/Mental Status: []? Eye contact is good. Motor activity is appropriate. Appearance is casual. Speech is Appropriate. Mood is dysthymic. Affect is congruent. Thoughts are linear and logical. No evidence of psychosis. Reviewed daily check in sheet and no reports of suicidal ideations or intent.? Client Response/Progress/Benefit: []? Pt was an active participant in group discussion. Attentive. Shared with the group mental health wins including getting the dishes done and waking up earlier than usual. Noted that earlier mornings allow for her to complete more tasks and better ease into the day. Current stressor noted as struggling with not letting a down day yesterday negatively impact her mood today. Identified several skills she can use and things she can do for herself to improve today. Progress noted. Benefited from group support, encouragement, and feedback. Will continue in IOP to prevent decompensation, increase healthy coping, and improve communication.? Narrative Note: []
--- NOTE | 2024-10-16 10:10 | BH.SGPN.GN ---
Behaviors/Verbalizations/Mental Status: [] Pt alert and oriented, casually dressed and groomed. Eye contact good. Motor activity appropriate. Speech within normal limits. Affect congruent, mood content,Thoughts linear, logical, no signs of hallucinations or delusions. Client Response/Progress/Benefit: [] Pt receptive to session AEB contributing to group discussion, as well as listening attentively to others, and taking notes. Worked with group to brainstorm the positive and negative aspects of stress on physical and mental health as well as the impact of distress on performance, relationships, and mental health. Pt shared their top stressors to be: home life,medical, and past regrets. Shared when feeling overwhelmed with stress pt tends to isolate. Benefited from increased awareness of positive and negative stress as well as how stress impact individuals. Will continue in IOP to challenge negative thought patterns and increase overall functioning. Narrative Note: []
--- NOTE | 2024-10-16 14:19 | BH.MDN ---
Multi-Disciplinary Note Note 30-min Individual: Time Started:: 11:20 Date: 10/16/24 Purpose of session/treatment goals addressed:: Purpose of session was to address ongoing depression symptoms and identify barriers to skill applicaiton Eye Contact:: Fair Motor Activity:: Appropriate Appearance:: Casual Speech:: Appropriate Mood:: Anxious and Depressed Affect:: Constricted Thoughts:: Linear, Logical and No evidence of hallucinations/delusions noted Staff Interventions:: motivational interviewing, psychoeducation on: (maintenance cycle and behavior activation benefits), CBT techniques and discharge planning (completed intake paperwork for [id number] with pt) Client Response:: Pt responded well to session, open to meeting with therapist. Pt continues to indicate scores of 5/5 for depression on daily symptom tracker. Therapist inquired further as to what pt?s depression current looks like for her. Pt indicated lack of motivation, hopelessness, daydreaming, and negative thoughts. Described thoughts of ?how did I get here?? or ?I should be doing something with my time rather than just laying here?, often leading to guilt and negative self-talk. Therapist inquired as to how pt is finding IOP tx and what skills learned she has started to incorporate in her daily life to address ongoing sx. Pt self-reports that she has not changed any of the behaviors or made adjustments to her routine since beginning treatment. Pt has been struggling with a goal to tidy up her bedroom since IOP admission as she has identified that disorganization impacts her mood as well. Able to recognize that difficulties with follow-through may be impeding further progress. Identified the connection between making behavioral changes and reduced negative thoughts. Shared struggling with a daily sense of purpose and knowing what to do with herself. Shared ?I know what I want to do with my life but I don?t know where to start?. Pt expressed interest in the film industry and has often expressed a love for cinema and acting. Denies interest in getting involved in community theater; however did indicate interest in a new local independent cinema and live performance venue. Reports difficulties in follow-through with starting goals and requested to fill-out the volunteer application in session. Additionally, pt worked with therapist to identify a small step she can take this weekend towards her ongoing goal of cleaning her room. Pt identified plans to get a storage bin from her grandparent?s house to store items she does not consistently use in her room. Risks/Concerns:: No SI or thoughts of as of this date 10/16/24 Progress Toward Goals/Plan:: Pt has made limited progress since beginning IOP tx as evidenced by continued self-report of ongoing symptoms of depression and anxiety impacting functioning. Admits to limited skill application and recognizes this is reinforcing current symptomology. Pt has not followed-through with establishing with recommended outpatient providers, however was receptive of doing so in session. Will continue IOP tx to improve mood stability, reduce depression, and prevent further decompensation. Time Stopped:: 11:54
--- NOTE | 2024-10-19 14:43 | BH.MDN ---
Multi-Disciplinary Note Note 30-min Individual: Time Started:: 09:26 Date: 10/19/24 Purpose of session/treatment goals addressed:: To address recent stressor resulting in emotion dysregulation and panic. Eye Contact:: Good (tearful) Motor Activity:: Restless Appearance:: Casual Speech:: Appropriate Mood:: Anxious and Depressed Affect:: Congruent Thoughts:: Linear, Logical, Racing and No evidence of hallucinations/delusions noted Staff Interventions:: thought challenging, mindfulness skills and strengths perspective Client Response:: Pt met with therapist as she left process group crying and indicated ?I?m having a panic attack?. Receptive of engaging in several mindfulness exercises with therapist including deep breathing, 5-senses, and progressive muscle relaxation. After several minutes pt able to calm self enough to discuss current stressors with therapist. Reported that she was having difficulties focusing as fellow participants shared in first group, noting that her thoughts kept wondering to recent political news she read. Reports the news was regarding newly banned books and school subjects. Shared that this led to pt catastrophizing and worrying that her rights were going to be infringed upon. Discussed fear that she would have to give up some of her favorite movies and books. Did well to work with therapist to challenge distortions and reviewed the meaning of a book ?ban? and that this does not prohibit someone from owning or reading the materials. Pt responded well to this and appeared relieved following discussion. Able to successfully return to groups for the day. Risks/Concerns:: None noted. Pt denies SI, plan, or intent as of this date. Progress Toward Goals/Plan:: Progress limited. Pt continues to report ongoing sx of depression and anxiety, significantly impacting daily functioning and progress. Pt self-reports difficulties with skill practice and regular implementation, also likely impeding progress. Notes some attempts at thought challenging or using opposite action, but often gives up when this becomes difficult or pt loses motivation. Pt continues to report finding the group environment to be helpful despite difficulties with consistent skill application. Recommended continued IOP tx to improve mood stability, reduce distorted thinking, and prevent decompensation. Time Stopped:: 09:50
--- NOTE | 2024-10-21 09:00 | BH.SGPN.GN ---
Behaviors/Verbalizations/Mental Status: [] Eye contact is good. Motor activity is appropriate. Appearance is casual. Speech is Appropriate. Mood is depressed and anxious. Affect is congruent. Thoughts are linear and logical. No evidence of psychosis. Reviewed daily check in sheet and no reports of suicidal ideations or intent. Client Response/Progress/Benefit: [] Pt was an active participant in group discussions. Attentive. Daily symptom tracker notes /5 for depression and 2/5 for anxiety. Pt shared with the group that she is a completionist and shared her excessive focus on a video game till she completed 100% of the challenges. Insight on how this translates into her personal life causing ruminations if she doesn't complete a task. Also admits that she will not start tasks if she doesn't believe she will complete them or Excell, which has hindered growth and starting new projects. Reports feeling tired today. She describes ruminating and thinking constantly on a number of things. She has recently been focused on a family member's and politics. Limited progress reported. It has been challenging to learn and implement new skills and insights due to adherence to rigid beliefs and perspectives. Benefited from group support, encouragement, and feedback. Will continue in IOP to prevent decompensation and improve functioning. Narrative Note: []
--- NOTE | 2024-10-21 11:15 | BH.SGPN.GN ---
Behaviors/Verbalizations/Mental Status: []Client alert and oriented, casually dressed and groomed. Eye contact fair. Motor activity appropriate. Speech within normal limits. Affect congruent, mood dysthymic. Thoughts linear, logical, no signs of hallucinations or delusions. Client Response/Progress/Benefit: []Pt was engaged throughout AEB contributing to group discussion and activity. Group processed how they each responded to the intentionally difficult task they were asked to completed and described the physical and emotional anger cues experienced throughout, as well as strategies used for managing these frustrations. Pt contributed as group brainstormed healthy coping skills for better managing anger which included: music, walking/exercise, taking a break, healthy venting, avoiding unnecessary stressors, reflection, and journaling. Pt cooperative with working in small groups to identify what strategy wants to work on to help interrupt personal anger cycle. Pt to continue IOP to improve distress tolerance, increase follow through on goals, and prevent decompensation.
--- NOTE | 2024-10-21 11:47 | PCM.BH.PN_ITS ---
Progress Note Progress Note: History of Present Illness/Interim History: The patient is a 29-year-old single female with a history of depression, anxiety and autism spectrum disorder who is seen in follow-up at the [facility] behavioral health IOP. I last saw the patient about 1 month ago and at that time she refused all medication as she does not like to take medication and feels her mother would not want her to take medication. Patient states that she is maybe a little worse lately. According to the staff she is consistent in her attendance somewhat but has not made much progress as she does not apply the skills she learns in the IOP. The patient feels that she is getting a little bit of learning out of the IOP. She denies any self-harm since last visit. She denies passive thoughts of , plan for suicide, suicidal ideation, homicidal ideation, hallucinations, delusions or self-harm. Current Psychiatric Medications: [] None Mental Status Examination: [] The patient is a short (5 foot tall) and slightly overweight female who is 29 years old and casually dressed and groomed with good hygiene. She has no psychomotor agitation or retardation and is ambulatory with a normal gait. She is cooperative yet remains quite reticent and seems to have some difficulty verbally and feelings and history. Her eye contact is poor at times as she looks away or down often while talking. Speech is normal rate and rhythm and fluent with no pressure. Mood is depressed. Affect is constricted. Thought process is goal-directed and organized. Thought content: The patient refuses to take medication. There is no evidence of passive thoughts of , suicidal ideation, homicidal ideation, plan for suicide, hallucinations or delusions. Reality testing is intact. Intelligence is average. Judgment is intact. Insight is limited. Impulsivity is moderate. Diagnoses: [] 1. Major depressive disorder, recurrent, severe without psychosis 2. Anxiety disorder, NOS 3. Autism spectrum disorder 4. Primary support, work and financial issues Plan: [] The patient will continue the IOP in behavioral health at [facility] as the structure, support, education and group therapy will hopefully prevent worsening of the patient's symptoms. She agrees that if it anytime she does not feel safe she will let us know or go to the emergency room. The patient refuses any medication. She will continue to follow-up with her outpatient providers and I will see the patient in follow-up while she is in the IOP.
--- NOTE | 2024-10-21 15:00 | BH.SGPN.GN ---
Behaviors/Verbalizations/Mental Status: [] Eye contact is good. Motor activity is appropriate. Appearance is casual. Speech is Appropriate. Mood is anxious and depressed. Affect is congruent. Thoughts are linear and logical. No evidence of psychosis Client Response/Progress/Benefit: [] Pt responded well to session AEB contributing to small group discussion, taking notes, and listening attentively to others. Group defined anger and discussed the benefits of managed anger and anger as a secondary emotion. Group shared perspective on benefits of anger as advocating for self and getting needs met, as well as a catalyst for change. Pt engaged in group discussion on common underlying emotions that mask as anger. Identified feeling overwhelmed as a common secondary emotion to anger. Appeared to benefit from increased knowledge of the anger cycle as well as personal triggers. Will continue IOP to increase healthy coping, prevent decompensation, and improve functioning. Narrative Note: []
--- NOTE | 2024-10-22 09:02 | BH.SGPN.GN ---
Behaviors/Verbalizations/Mental Status: []Pt alert and oriented, casually dressed and groomed. Eye contact good. Motor activity appropriate. Speech within normal limits. Affect congruent, mood dysthymic. Thoughts linear, logical, no signs of hallucinations or delusions. Reviewed pt?s symptom tracker, no risk for suicidal ideation, plan, or intent 10/22/24 Client Response/Progress/Benefit: []Pt was an active participant in group discussions. Attentive. Able to identify mental health wins including being able to have more time to herself at the house now that her brother has secured a job in [place] and will be spending less time at home. Pt reports enjoying having time to herself. Additional win noted as being able to spend time with family and celebrate her brother's accomplishment, noting that she does not always communicate well with her family. Stressor noted as continuing to struggle with putting off going through things piling up in her room. Able to identify several strategies that may be helpful in improving her ability to follow-through, such as breaking things down into more manageable goals. Progress noted. Benefited from group support, encouragement, and feedback. Will continue in IOP to prevent decompensation, continue to gain healthy coping skills, and reduce negative thinking patterns. Narrative Note: []
--- NOTE | 2024-10-22 10:15 | BH.SGPN.GN ---
Behaviors/Verbalizations/Mental Status: []Eye contact is fair. Motor activity is appropriate. Appearance is casual. Speech is Appropriate. Mood is content. Affect is constricted. Thoughts are linear and logical. No evidence of psychosis Client Response/Progress/Benefit: [] Pt engaged in session AEB listening attentively to others and providing input throughout. Pt engaged in activity, able to connect how it can be uncomfortable and difficult to accept when things are out of one?s own control. Worked with peer group to identify things in life which are hard to accept and identified personal things that are hard to accept including ?not getting the high school experience I wanted.? Seemed to benefit from increased awareness of the meaning as well as the importance of acceptance. Pt also worked on what acceptance is vs is not for own personal example. Will continue in IOP to promote use of healthy coping skills, improve daily functioning, and increase distress tolerance skills. ? Narrative Note: []
--- NOTE | 2024-10-22 11:10 | BH.SGPN.GN ---
Behaviors/Verbalizations/Mental Status: [] Pt alert and oriented, casually dressed and groomed. Eye contact fair. Motor activity is appropriate. Speech within normal limits. Affect congruent, mood anxious. Thoughts linear, logical, no signs of hallucinations or delusions. Client Response/Progress/Benefit: [] Pt was attentive and engaged participating at time during the discussion on acceptance and the mental health benefits of practicing acceptance. Pt and peers identified what makes acceptance challenging and pt completed a self-reflection exercise on what is hard to accept in pt's life. Pt identified things that are hard to accept for her. Pt identified an acceptance skill of support is barber to practice Pt appeared to benefit from gaining insight and learning strategies to increase acceptance. Will continue in IOP to prevent decompensation, increase healthy coping, and improve functioning. Narrative Note: []
--- NOTE | 2024-10-27 09:05 | BH.SGPN.GN ---
Behaviors/Verbalizations/Mental Status: []Pt alert and oriented, neatly dressed and groomed. Eye contact good. Motor activity appropriate. Speech within normal limits. Affect congruent, mood agitated. Thoughts linear, logical, no signs of hallucinations or delusions. Reviewed pt?s symptom tracker, no risk for suicidal ideation, plan, or intent 10/27/24. Client Response/Progress/Benefit: []Pt was an active participant in group discussions. Attentive. Able to identify mental health wins including being consistent with journaling and the warm weather improving her mood. Pt's stressor today is she needs to get another copy of her certificate, but pt has never done this before and she feels stressed. Pt stated pt is feeling annoyed this morning. Pt receptive to feedback from peers which pt reported was helpful. Progress noted, but pt's stress continues to be an issue. Benefited from group support, encouragement, and feedback. Will continue in IOP to promote mood stability and reinforce healthy coping skills. Narrative Note: []
--- NOTE | 2024-10-27 10:10 | BH.SGPN.GN ---
Behaviors/Verbalizations/Mental Status: []Patient was alert and oriented, casually dressed and groomed. Eye contact good. motor activity appropriate. speech within normal limits. Affect congruent, mood dysthymic. Thoughts linear, logical, no signs of hallucinations or delusion. Client Response/Progress/Benefit: []Pt participated in the group discussions AEB providing input, nodding and taking notes. Attentive during psychoeducation Goal Setting. Participated during the discussion on common barriers. Pt stated a personal barrier to accomplishing goals is lack of motivation and getting overwhelmed by them. Group also identified benefits of goals as sense of purpose, improved self-confidence, more motivation for other goals, sense of accomplishment, and improved mental health. Pt identified personal benefits to goal setting. Benefited from increased awareness of mental health benefits of goals as well as psychoeducation on SMART goal criteria. Will continue in IOP to further improve functioning and mood stability, promote behavior activation skill application, and prevent decompensation. Narrative Note: []
--- NOTE | 2024-10-27 11:10 | BH.SGPN.GN ---
Behaviors/Verbalizations/Mental Status: [] Pt alert and oriented. Appearance is casual. Eye contact good. Motor activity appropriate. Speech within normal limits. Affect is dysthymic. Mood is congruent. Thoughts linear, logical, no signs of hallucinations or delusions. Client Response/Progress/Benefit: [] Pt was engaged during discussion and experiential activity. Completed the worksheet challenging them to develop a personal SMART goal. Pt chose a SMART goal related to writing in her [employer] journal several times a week. Believes that this will help her with future therapy sessions. Identified obstacles such as low motivation and procrastination. Benefited from this group by developing a short-term SMART goal related to mental health. Will continue IOP to improve daily functioning, improve healthy coping skills, and prevent decompensation.
--- NOTE | 2024-10-29 09:05 | BH.SGPN.GN ---
Behaviors/Verbalizations/Mental Status: []? Pt alert and oriented, casually dressed and groomed. Eye contact fair to good. Motor activity appropriate. Speech within normal limits. Affect congruent, mood exhausted. Thoughts linear, logical, no signs of hallucinations or delusions. Reviewed pt?s symptom tracker, no risk for suicidal ideation, plan, or intent 10/29/24.?? Client Response/Progress/Benefit: []Pt was an active participant in group discussions. Attentive. Able to identify mental health wins including spending time cleaning the house, which has been a goal of hers for several weeks. Additional win noted as being able to spend time outside now that the weather has improved. Stated that the sunshine improves her mood. Pt reports that her current stressor in struggling with fatigue. Reports that she does not usually nap but feels this would be helpful for her today. Benefited from group support, encouragement, and feedback. Will continue in IOP tx to prevent decompensation, promote mood stability, and increase self-care.? Narrative Note: []
--- NOTE | 2024-10-29 10:00 | BH.SGPN.GN ---
Behaviors/Verbalizations/Mental Status: [] Pt alert and oriented, casually dressed and groomed. Eye contact good. Motor activity appropriate. Speech within normal limits. Mood:anxious. Affect: congruent. Thoughts linear, logical, no signs of hallucinations or delusions. Client Response/Progress/Benefit: [] Pt participated when prompted during group discussions. Attentive during psychoeducation on self-sabotage and its impact on mental health. Attentive as group identified different types of self-sabotage such as; procrastination, self-medicating, unrealistic expectations, people-pleasing, and poor boundaries. Attentive during group discussion on reasons for self-sabotage behaviors (feels comfortable, fear of failure, false sense of control, low self-worth, and fear of being vulnerable). Seemed to benefit from gaining awareness about the self-sabotage. Pt to continue IOP tx to prevent decompensation, increase healthy coping, and improve functioning. Narrative Note: []
--- NOTE | 2024-10-29 11:10 | BH.SGPN.GN ---
Behaviors/Verbalizations/Mental Status: []Pt alert and oriented, casually dressed and groomed. Eye contact fair. Motor activity appropriate. Speech within normal limits. Affect congruent, mood dysthymic. Thoughts linear, logical, no signs of hallucinations or delusions. Client Response/Progress/Benefit: []Pt responded well to session, attentive and providing input. Pt worked on his mental health wellness garden picture and discussed things that contribute to mental wellness in his life. With peers, pt discussed things that would sabotage one's mental health wellness and added it to the garden metaphor. Pt identified things pt personally does to sabotage as keeping a messy environment and not creating a social support network. Pt attentive during psychoeducation on ways to reduce self-sabotage. Pt appeared to benefit from learning skills and gaining awareness of self-sabotaging behaviors. Pt will continue IOP tx to improve daily functioning, increase follow through on goals, and prevent decompensation.
--- NOTE | 2024-10-30 07:57 | BH.DS_ITS ---
Discharge Summary Demographics Date of Admission:: 09/16/24 Discharge Date: 10/30/24 Presenting Problems at Admission:: The patient is a 29-year-old single female with a history of depression, anxiety and autism spectrum disorder who was referred to the IOP at [facility] after being seen in the [facility] emergency room on September 08, 2024 for worsening symptoms of depression and anxiety. Her symptoms of depression have been worsen ing for the past 2 to 3 months and she was sent to the emergency room by her primary care physician after she told them she was depressed and wanted to run away. At time of admission, patient endorses sadness, crying episodes, loneliness, hopelessness, feeling empty, low energy, fatigue, decreased concentration and guilt. She does have a history of self-harm by scratching herself very superficially. She states she has done this a few times and the most recent time she did it was 2 days ago. She is experiencing some racing thoughts and feeling restless at times. Discharge Diagnoses:: 1. Major depressive disorder, recurrent, severe without psychosis 2. Anxiety disorder, NOS 3. Autism spectrum disorder 4. Primary support, work and financial issues Reason for Discharge:: Client has reintegrated back into her daily activities successfully, reports improved daily functioning, and although she has not accomplished her tx goals, she has made progress on treatment goals. Treatment Progress During Treatment & Response: : Client stated progress to include increased honesty with how she is feeling to herself and her supports, improved engagement in hobbies and interests, decreased negative thinking, and improve socialization through the group setting. Per DSM 5 cross cutting scale her overall mental health symptoms have not decreased; however, pt reports improvement per self-report. Depression and anxiety scores remained the same at a moderate range. Client had stated not being able to control the current political climate has contributed to feeling more low at times. Client consistently attended [facility]. Client admitted there were moments off and on throughout the program that she didn't apply the skills consistently. Client has shown improved consistency the last two weeks. Issues Still to be Addressed:: Client could benefit from improving distress t olerance, decreasing utilization of avoidance as a coping skill, and reinforcing positive thought patterns. Also could benefit from challenging distorted/negative thought patterns. Discharge Recommendations/Instructions:: Client is established and will follow up with [id number] for both psychiatry and outpatient counseling services. Pt reports she has appointments scheduled for February once her insurance is updated. Pt will additionally begin the [facility] Aftercare program. Discharge Handout
--- NOTE | 2024-10-30 10:05 | BH.SGPN.GN ---
Behaviors/Verbalizations/Mental Status: [] Eye contact is good. Motor activity is appropriate. Appearance is casual. Speech is Appropriate. Mood is dysthymic. Affect is congruent. Thoughts are linear and logical. No evidence of psychosis. Client Response/Progress/Benefit: [] Pt engaged participant AEB listening to others, engaging in activity, and providing feedback throughout. Attentive during psychoeducation and provided insight into obstacles that impede mental wellness. Pt shared with group current mental health reality and desired mental health reality, noting she would like to feel more connected with others. Attentive to others that shared. Identified barriers to desired reality include: unrealistic expectations, negative self-talk, and fear of failure. Benefited from taking look at current mental health state and obstacles for progress. Pt to d/c from [facility] tx and continue in outpatient counseling to further promote mood stability and prevent decompensation. Narrative Note: []
--- NOTE | 2024-10-30 11:05 | BH.SGPN.GN ---
Behaviors/Verbalizations/Mental Status: [] Eye contact is good. Motor activity is appropriate. Appearance is casual. Speech is Appropriate. Mood is anxious. Affect is congruent. Thoughts are linear and logical. No evidence of psychosis Client Response/Progress/Benefit: [] Pt was engaged at times during group discussions and was attentive during group activity. Worked with peers to identify strategies to help overcome barriers and obstacles to desired reality. Group worked together to develop strategies for the common barriers. Identified personal barriers to desired reality and chose one obstacle to work. Pt stated pt wants to work on poor communication and identified a strategy to practice positive self-talk. Pt seemed to benefit from increased knowledge of practical strategies to overcome common barriers to moving forward. Plan to discharge successfully today. Narrative Note: []
--- NOTE | 2024-10-30 14:47 | BH.MDN ---
Multi-Disciplinary Note Note 30-min Individual: Time Started:: 09:16 Date: 10/30/24 Purpose of session/treatment goals addressed:: Purpose of session was to identify treatment progress, complete maintenance plan, and solidify aftercare plans. Eye Contact:: Good (tearful) Motor Activity:: Appropriate Appearance:: Casual Speech:: Appropriate Mood:: Anxious and Dysthymic Affect:: Congruent Thoughts:: Linear, Logical and No evidence of hallucinations/delusions noted Staff Interventions:: CBT techniques, discharge planning, strengths perspective and other (reviewed maintenance skills) Client Response:: Client tearful throughout session, reported feeling nervous but proud to be successfully discharging from [facility]. Shared that she found the groups to be very informative and the shared experience to be supportive and normalizing of her mental health struggles. Discussed feeling she was able to make some progress in reducing isolation, increasing motivation to engage in more social outlet/make connections with others, and begin a ?dream journal?. Shared that this journal would be a means of processing things from her past as well as create goals for herself for her future and work on this in individual outpatient counseling. Went on to note that although she has not yet looked into the support groups available at [facility], she feels more motivated to do so after having a positive and supportive IOP experience. Additionally shared plans to reach back out to a former classmate in order to try and improve socialization. Client worked with therapist to complete maintenance plan in which she identified potential triggers, warning signs, self-care activities, and healthy coping skills/strategies to focus on moving forward. Client stated she does feel sad but ready to discharge from program and begin the aftercare program. Risks/Concerns:: Denies suicidal ideation, plan, or intention to date. future oriented. Progress Toward Goals/Plan:: Client has made progress with improved communication with others, increased insight, and improved decreased isolation. Client has also been able to make several steps towards independence through applying for a job and independently contacting [facility] [id number] to schedule aftercare appointments. Client still struggles with depression, anxiety, and managing daily stressors. Pt limited tx progress is likely due to self-reports of not actively implementing the coping skills and thought challenging strategies discussed in IOP tx. Client responded well to IOP AEB consistent IOP attendance, often providing input during group sessions, and engaging in individual therapy. Client is established and will follow up with [place] [facility] [id number] for both psychiatry and outpatient counseling services. Pt reports she has appointments scheduled for October once her insurance is updated. Pt will additionally begin the [facility] Aftercare program. Time Stopped:: 09:36
== END 2024-10-30 12:03 | disposition home or self-care (01) ==
LOC: BHIOP 07:08
PROVIDERS: PCP Family Medicine; Referring Provider Psychiatry & Neurology Psychiatry; Visit Provider Psychiatry & Neurology Psychiatry
DX: F33.2 Major depressive disorder, recurrent severe without psychotic features (principal); F41.9 Anxiety disorder, unspecified; F84.0 Autistic disorder
CPT/HCPCS: H2012; H2020; S9480; 90832; 90853

== ENCOUNTER 2024-11-05 08:00 | Outpatient (RCR) | payer MEDICAID, SELFPAY ==
--- NOTE | 2024-11-05 14:00 | BH.COMM ---
Communication Note Communication with Client Communication Note: Patient completed IOP and presents today to start relapse prevention group which meets once weekly (1.5 hours) for 8 weeks. Case discussed with Dr. Ramsay with plan to admit with dx of F33.2
--- NOTE | 2024-11-05 15:54 | BH.MTP ---
Master Treatment Plan Patient Information Program Physician:: Dr. Noemi Fierro Primary Therapist:: Mariaelena ROLON Psychiatric Diagnoses Psychiatric Diagnoses:: 1. Major depressive disorder, recurrent, severe without psychosis 2. Anxiety disorder, NOS 3. Autism spectrum disorder 4. Primary support, work and financial issues Diagnosis Code(s):: F33.2 Estimated LOS Estimated LOS (in weeks):: 8 Problem/Goal #1 Problem/Goal #1 Stated Goal:: client will maintain or see a reduction in symptoms AEB client score on the DSM 5 cross-cutting measure and improve client's daily functioning. Objectives Objective #1: Stated Objective: Client will continue to consistently apply healthy coping skills to maintain progress made in IOP tx. Interventions: Through group therapy, client will review warning signs and triggers as well as healthy coping skills learned in IOP tx to successfully maintain gains while transitioning into outpatient therapy. Discharge Criteria: Client will have accomplished this goal when client's score on the DSM-5 cross-cutting measure has maintained or reduced over a 8 week period. Target Date: 12/31/24 Review Date: 12/03/24 Status: open Objective #2: Stated Objective: Client will learn and utilize 2-3 maintenance strategies to prevent decompensation from original IOP DSM-5 scores. Interventions: Through group therapy, client will be provided with education on healthy maintenance behaviors, relapse prevention techniques, and healthy coping strategies. Discharge Criteria: Client will have accomplished this goal when can report using at least 2 maintenance skills to prevent decompensation compared to original IOP DSM-5 scores Target Date: 12/31/24 Review Date: 12/03/24 Status: open
--- NOTE | 2024-11-12 14:00 | BH.SGPN.GN ---
Behaviors/Verbalizations/Mental Status: []Client alert and oriented, casually dressed and groomed. Eye contact good. Motor activity appropriate. Speech within normal limits. Affect congruent, mood anxious and euthymic. Thoughts linear, logical, no signs of hallucinations or delusions. Client Response/Progress/Benefit: []Pt responded well to session AEB sharing and listening attentively to others. Pt did not have any scheduled mental health appointments this week and pt is taking medications regularly. Pt stated self-care via making time for hobbies, journaling, and giving herself space as pt?s primary coping skills this week. Pt participated in group discussion defining vulnerability, how and why we avoid it, and the benefits. Pt was an active participant and provided personal examples of being vulnerable and the positive things that came with this. Pt stated that she is unsure of how she would like to practice vulnerability this week and plans to give this more thought before creating a goal for herself. Encouraged to follow-through with goal creation. Will continue aftercare treatment to reinforce healthy coping skills and promote gains. Narrative Note: []
--- NOTE | 2024-11-19 14:00 | BH.SGPN.GN ---
Behaviors/Verbalizations/Mental Status: []Pt alert and oriented, casually dressed and groomed. Eye contact good. Motor activity appropriate. Speech within normal limits. Affect congruent, mood euthymic. Thoughts linear, logical, no signs of hallucinations or delusions. Client Response/Progress/Benefit: [] Pt receptive of session, engaged throughout. Pt reports not using healthy coping skills outside of IOP aftercare this week. Pt also marked that they did not meet with their therapist or psychiatrist this week. Receptive of discussion on distress tolerance and emotional urges. Pt contributed to the discussion of distress tolerance and how building distress tolerance can help improve mood stability and resilience. Pt wants to keep building distress tolerance by engaging in situations that cause anxiety. Pt seemed to benefit from support from peers and increasing understanding of distress tolerance. Will continue IOP aftercare to promote mood stability and reinforce healthy coping skills. ? Narrative Note: []
--- NOTE | 2024-11-26 15:56 | BH.TPR ---
Treatment Plan Review Demographics Date of Admission:: 11/05/24 Date of Treatment Plan Review:: 11/26/24 Admitting Diagnoses:: 1. Major depressive disorder, recurrent, severe without psychosis 2. Anxiety disorder, NOS 3. Autism spectrum disorder 4. Primary support, work and financial issues Current Diagnoses:: 1. Major depressive disorder, recurrent, severe without psychosis 2. Anxiety disorder, NOS 3. Autism spectrum disorder 4. Primary support, work and financial issues Patient Status Patient's Response to Treatment:: Pt is consistent with attendance, but pt admits that when she is not at IOP she is not using many skills. Pt often reports feeling depressed, isolating, and napping. Pt struggled with using healthy coping skills in IOP as well. Pt reports not doing homework from previous aftercare sessions on a consistent basis as well. Status of Current Problems and Symptoms: Pt's scores for depression are almost the same compared to IOP admission and she is reporting feeling more irritable as well. Pt's stressors remain the same as IOP including worry about the world, not having a job, and not having social support. According to pt's self-report she has not yet gone to [employer] and she is still looking for a job. Pt is connecting with peers in aftercare, but she struggles to apply social skills outside of IOP setting. Progress Problem #1: Problem Name:: Pt will maintain or see a reduction in sx Status of Goals:: Obj 1 - not complete. Pt's DSM 5 scores are almost the same compared to initial IOP scores. Pt reports she is not consistent with using coping skills outside of IOP setting and she has not yet followed through with her goals to increase socialization. Obj 2 - not complete. Pt self-reports not using healthy coping skills and she mostly sleeps per her report. Team Recommendations:: Recommended client continue IOP aftercare group in addition to attending regular outpatient counseling in order to maintain gains. Pt also recommended to continue working on self-compassion, using opposite action, and setting realistic goals.
== END 2024-11-27 23:59 ==
LOC: BHOG 08:00
PROVIDERS: PCP Family Medicine; Referring Provider Psychiatry & Neurology Psychiatry; Visit Provider Psychiatry & Neurology Psychiatry
DX: F33.2 Major depressive disorder, recurrent severe without psychotic features (principal); F41.9 Anxiety disorder, unspecified; F84.0 Autistic disorder
CPT/HCPCS: 90853

== ENCOUNTER 2024-11-30 07:34 | Outpatient (RCR) | payer MEDICAID, SELFPAY ==
--- NOTE | 2024-12-03 14:00 | BH.SGPN.GN ---
Behaviors/Verbalizations/Mental Status: []Pt alert and oriented, casually dressed and groomed. Eye contact good. Motor activity appropriate. Speech within normal limits. Affect congruent, mood homesick. Thoughts linear, logical, no signs of hallucinations or delusions. Client Response/Progress/Benefit: []Pt responded well to session AEB sharing and listening attentively to others. Pt has not scheduled outpatient mental health appointments for weekly counseling and regular med management and reports inconsistent medication compliance. Pt reports using skills of healthy nutrition, journaling, and getting enough sleep to maintain mood stability. Pt participated in group discussion defining affirmations and why they are important. Pt provided insight throughout clinician?s presentation of tips for writing personal affirmations and wrote their own affirmations, including ?I am willing to keep learning? and ?I have the right to take time for myself?. Pt appeared to benefit from increased knowledge of affirmation writing skills and creating their own affirmation statements to remind themselves of outside tx environment. Will continue aftercare tx to promote consistent mental health maintenance and prevent decompensation. Narrative Note: []
--- NOTE | 2024-12-03 15:36 | BH.COMM ---
Communication Note Communication with Client Communication Note: Pt was seen during the month of November for IOP aftercare group for the maintenance of pt's Major depressive disorder, recurrent, severe without psychosis F33.2. Pt's treatment plan review was documented on 11/26/24. Pt continues to be consistent with attendance.
--- NOTE | 2024-12-10 13:25 | BH.COMM ---
Communication Note Communication with Client Communication Note: Met with treatment team to discuss client's progress while in aftercare. IOP psychiatrist agreed with plan for client to continue aftercare program with diagnosis of F33.2.
== END 2024-12-28 23:59 ==
LOC: BHOG 07:34
PROVIDERS: PCP Family Medicine; Referring Provider Psychiatry & Neurology Psychiatry; Visit Provider Psychiatry & Neurology Psychiatry
DX: F33.2 Major depressive disorder, recurrent severe without psychotic features (principal)
CPT/HCPCS: 90853

== ENCOUNTER 2024-12-29 07:11 | Outpatient (RCR) | payer MEDICAID, SELFPAY ==
--- NOTE | 2025-01-14 13:28 | BH.DS_ITS ---
Discharge Summary Demographics Date of Admission:: 11/05/24 Discharge Date: 01/14/25 Presenting Problems at Admission:: Pt was admitted to [facility] level of care due to isolation, depression, and overall anxiety symptoms hindering pt's ability to function at her baseline. Pt was admitted to [facility] aftercare to maintain gains made in IOP tx, further reduce symptoms, and improve distress tolerance. Discharge Diagnoses:: 1. Major depressive disorder, recurrent, severe without psychosis 2. Anxiety disorder, NOS 3. Autism spectrum disorder 4. Primary support, work and financial issues Reason for Discharge:: Pt has accomplished tx goals AEB ability to maintain mood stability and gains made in IOP. Treatment Progress During Treatment & Response: Pt responded well to treatment AEB pt's consistent attendance, ongoing attentiveness and engagement in group discussions, and continued reporting use of skills outside treatment environment. Pt's symptoms are 12% lower than they were at IOP admission per the DSM-5. Pt's anxiety has maintained without increase, depression is 13% than at IOP admission. Pt has been able to maintain consistent progress for an additional 8 weeks following IOP tx. Issues Still to be Addressed:: self-care, behavioral activation and isolation. Additionally, pt can benefit from continuing to practice self-compassion and yarely lectical thinking. Discharge Recommendations/Instructions:: Client is established and will follow up with [id number] for both psychiatry and outpatient counseling services. Discharge Handout
--- NOTE | 2025-01-14 13:28 | BH.DS_ITS ---
Discharge Summary Demographics Date of Admission:: 11/05/24 Discharge Date: 01/14/25 Presenting Problems at Admission:: Pt was admitted to [facility] level of care due to isolation, depression, and overall anxiety symptoms hindering pt's ability to function at her baseline. Pt was admitted to [facility] aftercare to maintain gains made in IOP tx, further reduce symptoms, and improve distress tolerance. Discharge Diagnoses:: 1. Major depressive disorder, recurrent, severe without psychosis 2. Anxiety disorder, NOS 3. Autism spectrum disorder 4. Primary support, work and financial issues Reason for Discharge:: Pt has accomplished tx goals AEB ability to maintain mood stability and gains made in IOP. Treatment Progress During Treatment & Response: Pt responded well to treatment AEB pt's consistent attendance, ongoing attentiveness and engagement in group discussions, and continued reporting use of skills outside treatment environment. Pt's symptoms are 12% lower than they were at IOP admission per the DSM-5. Pt's anxiety has maintained without increase, depression is 13% than at IOP admission. Pt has been able to maintain consistent progress for an additional 8 weeks following IOP tx. Issues Still to be Addressed:: self-care, behavioral activation and isolation. Additionally, pt can benefit from continuing to practice self-compassion and yarely lectical thinking. Discharge Recommendations/Instructions:: Client is established and will follow up with [id number] for both psychiatry and outpatient counseling services. Discharge Handout
== END 2025-01-14 15:23 | disposition home or self-care (01) ==
LOC: BHOG 07:11
PROVIDERS: PCP Family Medicine; Referring Provider Psychiatry & Neurology Psychiatry; Visit Provider Psychiatry & Neurology Psychiatry
DX: F33.2 Major depressive disorder, recurrent severe without psychotic features (principal); F41.9 Anxiety disorder, unspecified; F84.0 Autistic disorder
CPT/HCPCS: 90853